=== PATIENT | male | born 1955 ===

== ENCOUNTER 2021-03-23 11:00 | Emergency (ER) | payer MEDICARE, SELFPAY ==
--- NOTE | ~2021-03-23 | XR_ITS ---
EXAMINATION: XR CHEST CLINICAL INFORMATION: Shortness of breath and cough COMPARISON: None TECHNIQUE: Frontal view of the chest was obtained. FINDINGS: No significant abnormality is noted involving the heart, lungs, mediastinum, bony thorax or soft tissues. XR/XR chest 1V IMPRESSION: No acute disease.
[2021-03-23 11:30] VITALS: BP 143/73; PULSE 82; RESP 18; TEMP 36.9; O2SAT 98; BMI 25.7
--- NOTE | 2021-03-23 14:04 | ED.URI ---
HPI - URI/Sore Throat General Chief Complaint: Upper Respiratory Symptoms Stated Complaint: nausea cough vomiting Time Seen by Provider: 03/23/21 14:03 Source: patient Mode of arrival: ambulatory Limitations: no limitations History of Present Illness MD elicited complaint: other (Fatigue, nausea ) Consistency: constant Severity: mild Able to tolerate fluids by mouth: Yes Exacerbating factors: nothing Relieving factors: nothing Context: sick contacts ( COVID + ) Associated symptoms: myalgias and nausea Treatments prior to arrival: none Review of Systems Review of Systems: Constitutional : No Weight loss, No Fever, No Chills, + Fatigue, No Malaise ENT/Mouth : No sore throat, No Rhinorrhea Eyes: No Eye Pain, No Swelling, No Redness Cardiovascular : No Chest Pain, No SOB, No Dyspnea on Exertion, No Orthopnea, No Edema, No Palpitations Respiratory : No Cough, No Sputum, No Wheezing Gastrointestinal : + Nausea, No Vomiting, No Diarrhea, No Constipation, No abdominal Pain, No Hematochezia, No Melena Genitourinary : No Dysuria, No Urinary Frequency, No Hematuria, Musculoskeletal : No joint pain, No Myalgias, No Joint Swelling Skin : No Skin Lesions, No rash Neuro : No Weakness, No Numbness, No Dizziness, No Headache Psych : No Anxiety/Panic, No Depression All other systems reviewed and are negative Yes all other systems are reviewed and are negative [facility], LAT[facility] Past Medical History Attestation statement: The following information was validated with the patient. Source: old records reviewed and nursing notes reviewed Social History Social History Advance Directives: Yes Advance Directives Information Provided: No Advance Directives on File: No Physical Exam Vital Signs: Vital Signs: Last Vital Signs Temp 98.4 F 03/23/21 11:30 Pulse 82 03/23/21 11:30 Resp 18 03/23/21 11:30 BP 143/73 H 03/23/21 11:30 Pulse Ox 98 03/23/21 11:30 BMI result Body Mass Index 25.7 VSS slightly hypertensive. Appearance: Alert.? Oriented X3.? No acute distress.? Head: Normocephalic, atraumatic, no step-offs or deformities Eyes: Pupils equal, round and reactive to light.? ENT: Pharynx normal.? Neck: Normal inspection.? Neck supple.? CVS: Normal heart rate and rhythm.? Pulses normal.? Respiratory: No respiratory distress.? Breath sounds normal.? Abdomen: Soft and nontender.? Skin: Skin warm and dry.? Normal skin color.? Normal skin turgor.? Extremities: No lower extremity edema.? No calf ttp. 5/5 strength to bilateral upper and lower extremities Back: No midline tenderness, no C-spine tenderness, full range of motion, no CVA tenderness bilaterally Neuro: Oriented X 3.? No motor deficit.? No sensory deficit. MDM - URI/Sore Throat MDM Narrative Medical decision making narrative: 1400 65-year-old male no known medical history presents to the emergency department with complaints of nausea, and fatigue, he also reports a sick contact, his is currently COVID positive. Physical examination benign. Plan at this time is to obtain a COVID swab and basic labs. Medical Records Attestation: I reviewed the patient's medical records. Lab Data Attestation: I reviewed the patient's lab results. Critical Care Time Critical Care Time Critical Care Time: No Discharge Plan Discharge Clinical Impression: Nausea, Fatigue Patient Disposition: Home, Self-Care Instructions: Fatigue (ED), Acute Nausea and Vomiting (ED) Referrals: Physician,None [Primary Care Provider] - 2 days
--- NOTE | 2021-03-23 14:26 | ED.URI ---
HPI - URI/Sore Throat General Chief Complaint: Upper Respiratory Symptoms Stated Complaint: nausea cough vomiting Time Seen by Provider: 03/23/21 14:03 Source: patient Mode of arrival: ambulatory Limitations: no limitations History of Present Illness HPI Narrative: 65-year-old male no known medical history presents to the emergency department with fatigue, nausea, and productive cough w/ clear sputum he is concerned because his is currently COVID positive. He tells me he is not vaccinated. He tells me that he has been feeling fatigued, and nauseated for the past week. He denies chest pain, shortness of breath, fevers, chills, nausea, vomiting, headache, rhinorrhea, sore throat, ear pain, dizziness, vision changes. Patient is not vaccinated against COVID-19. Patient is taking NyQuil for symptoms. MD elicited complaint: other (Fatigue) Onset (ago): week(s) (1) Consistency: constant Severity: severe Description of mucous: clear Able to tolerate fluids by mouth: Yes Exacerbating factors: nothing Relieving factors: nothing Context: sick contacts ( covid +) Associated symptoms: myalgias Treatments prior to arrival: other (Patient drinking plenty of fluids, and taking NyQuil frequently) Related Data Previous Rx's Medication Instructions Recorded ondansetron 4 mg disintegrating 4 mg PO ONCE PRN #10 tab 03/23/21 tablet Allergies Allergy/AdvReac Type Severity Reaction Status Date / Time Unable to Assess Allergy Unverified 03/23/21 14:30 Review of Systems Review of Systems: Constitutional : No Weight loss, No Fever, No Chills, + Fatigue, + Malaise ENT/Mouth : No sore throat, No Rhinorrhea Eyes: No Eye Pain, No Swelling, No Redness Cardiovascular : No Chest Pain, No SOB, No Dyspnea on Exertion, No Orthopnea, No Edema, No Palpitations Respiratory : No Cough, No Sputum, No Wheezing Gastrointestinal : No Nausea, No Vomiting, No Diarrhea, No Constipation, No abdominal Pain, No Hematochezia, No Melena Genitourinary : No Dysuria, No Urinary Frequency, No Hematuria, Musculoskeletal : No joint pain, No Myalgias, No Joint Swelling Skin : No Skin Lesions, No rash Neuro : No Weakness, No Numbness, No Dizziness, No Headache All other systems reviewed and are negative Yes all other systems are reviewed and are negative PMFSH Past Medical History Attestation statement: The following information was validated with the patient. Source: old records reviewed and nursing notes reviewed Social History Social History Advance Directives: Yes Advance Directives Information Provided: No Advance Directives on File: No Physical Exam Vital Signs: Vital Signs: Last Vital Signs Temp 99.6 F 03/23/21 15:18 Pulse 77 03/23/21 15:18 Resp 18 03/23/21 15:18 BP 136/80 03/23/21 15:18 Pulse Ox 98 03/23/21 15:18 BMI result Body Mass Index 25.7 Vital signs stable, patient noted to be slightly hypertensive. Appearance: Alert.? Oriented X3.? No acute distress.? Patient appears well. Head: Normocephalic, atraumatic, no step-offs or deformities Eyes: Pupils equal, round and reactive to light.? Extraocular movements intact ENT: Pharynx normal.? Moist mucous membranes Neck: Normal inspection.? Neck supple.? CVS: Normal heart rate and rhythm.? Pulses normal.? Respiratory: No respiratory distress.? Breath sounds normal.? Abdomen: Soft and nontender.? Skin: Skin warm and dry.? Normal skin color.? Normal skin turgor.? Extremities: No lower extremity edema. 5/5 strength to bilateral upper and lower extremities Back: No midline tenderness, no C-spine tenderness, full range of motion, no CVA tenderness bilaterally Neuro: Oriented X 3.? No motor deficit.? No sensory deficit. Course Reevaluation(s) Reevaluation #1: Chest x-ray negative. Patient's vital signs stable, saturating 98% on room air even after ambulation. Patient is safe for discharge home with PCP follow-up. Patient's symptoms likely secondary to COVID-19 infection. Patient is not vaccinated. I have advised him to return to the emergency department with new or worsening symptoms. Patient follow-up with his primary care provider. Time: 15:48 MDM - URI/Sore Throat MDM Narrative Medical decision making narrative: 0993 65-year-old male no known medical history presents to the emergency department with fatigue, malaise, productive cough of clear sputum, nausea x1 week. Patient tells me is COVID positive. He is not vaccinated. He does not smoke. He denies chest pain, shortness breath, fevers, chills, vomiting Upon physical examination patient appears well, vital signs stable, noted to be slightly hypertensive. Rest of physical examination benign Plan at this time is to obtain a chest x-ray and COVID test Medical Records Attestation: I reviewed the patient's medical records. Lab Data Attestation: I reviewed the patient's lab results. Labs: Lab Results 03/23/21 Range/Units 14:37 COVID-19 (TEJ) Positive A (Negative) COVID-19 Clin Com See Note Imaging Data Chest x-ray: Attestation: I personally reviewed and interpreted this imaging study as follows: Radiologist's impression: FINDINGS: No significant abnormality is noted involving the heart, lungs, mediastinum, bony thorax or soft tissues. XR/XR chest 1V IMPRESSION: No acute disease. ? Critical Care Time Critical Care Time Critical Care Time: No Discharge Plan Discharge Clinical Impression: Nausea, Fatigue, COVID-19 Patient Disposition: Home, Self-Care Instructions: Acute Nausea and Vomiting (ED), Fatigue (ED) Additional Instructions: Take your medications as prescribed. If you were prescribed antibiotics today, it is important that you take your medication to their entirety, do not skip any doses, do not finish them early. Today you tested positive for COVID-19. Take Ibuprofen or Tylenol as needed for fevers or body aches. Quarantine for 14 days if you are not vaccinated or for 10 days if you are vaccinated. Drink plenty of fluids. You can take ibuprofen every 6 hours, Tylenol every 4 alternating Follow-up with your primary care provider this week. Return to the emergency department with new or worsening symptoms. In case of emergency call 911 Prescriptions: New ondansetron 4 mg tablet,disintegrating 4 mg PO ONCE PRN (Reason: nausea and vomiting) Qty: 10 RF: 0 Referrals: Physician,None [Primary Care Provider] - 2 days Stand Alone Forms: Work/School Release
[2021-03-23 15:01] LABS: COVID-19 Test Positive (Negative); IDNOW Serial# 08D9AD1C
[2021-03-23 15:18] VITALS: BP 136/80; PULSE 77; RESP 18; TEMP 37.6; O2SAT 98
== END 2021-03-23 15:55 | disposition home or self-care (01) ==
PROVIDERS: Emergency Provider Emergency Medicine
DX: U07.1 COVID-19 (principal)
CPT/HCPCS: 36415; 71045; 87635; 99283; 99284

== ENCOUNTER 2022-12-15 09:45 | Outpatient (AMB) | payer MEDICARE, SELFPAY ==
--- NOTE | 2022-12-15 10:05 | A.OFFPC_ITS ---
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 Patient presents with concerns of aging and recovering from a hernia surgery and feels like he may not be recovering as well as planned. Patient has colonoscopy planned for 03/2023. 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 Sun damaged skin, Neoplasm L forearm L Great Toenail Trauma PMHx: L inguinal hernia, Hiatal Hernia, sun damaged skin SurgHx: L ingunal hernia, Hiatal Hernia FHx: Mom: Dementia. Dad: Esophageal Cancer SocHx: Nonsmoker, EtOH minimal/none. [facility] Medical History (Updated 12/15/22 @ 11:01 by Joey Barriga) Concern about skin disease without diagnosis Chronic GERD Deviated nasal septum Elbow fracture Hiatal hernia Inguinal hernia Surgical History (Updated 12/15/22 @ 10:33 by Daxa Buckley) History of hernia repair H/O inguinal hernia repair Family History (Updated 12/15/22 @ 10:36 by Daxa Buckley) Mother High cholesterol Father Esophageal cancer Maternal Grandmother Breast cancer Paternal Grandfather Thyroid disorder Maternal Grandfather Alcoholism Social History Housing: House Alcohol intake: never Patient Tobacco Use Status: Never used Tobacco e-Cigarette/Vaping Use: Former Use Substance Use Type: Marijuana service: Yes ([employer]) Current occupational status: employed 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 1. Little interest or pleasure in doing things: nearly every day 2. Feeling down, depressed, or hopeless: nearly every day 3. Trouble falling or staying asleep, or sleeping too much: nearly every day 4. Feeling tired or having little energy: nearly every day 5. Poor appetite or overeating: nearly every day 6. Feeling bad about yourself - or that you are a failure or have let yourself or your family down: not at all 7. Trouble concentrating on things, such as reading the newspaper or watching television: not at all 8. Moving or speaking so slowly that other people could have noticed. Or the opposite - being so fidgety or restless that you have been moving around a lot more than usual: not at all 9. Thoughts that you would be better off or of hurting yourself in some way: not at all Total score: 15 Depression Screening Interpretation: Positive 24685 - PHQ-9 Billing: Yes Source: Developed by Drs. Shailesh Krishna, Diana Boogie, Levi Dobson and colleagues, with an educational matthieu from [employer]. Thrive Questionnaire Date Thrive assessed: 12/15/22 I am a: Patient What is your living situation today?: I have a steady place to live Within the past 12 months, did the food you bought not last and you didn't have the money to get more?: Never true Within the past 12 months, did you worry whether your food would run out before you got money to buy more?: Never true Do you have trouble paying for medicines?: No Do you have trouble getting transportation to medical appointments?: No Do you have trouble paying your heating and electricity bill?: No Do you have trouble taking care of your child, family member or friend?: No Do you have trouble with day-to-day activities such as bathing, preparing meals, shopping, managing finances, etc.?: No Are you currently unemployed and looking for a job?: No Are you interested in more education?: No Please select the resources that you would like help with: None Currently or been in a relationship where the following occur: no concerns reported AUDIT C Alcohol Use Questionnaire (AUDIT-C) 1. How often do you have a drink containing alcohol?: Never 3. How often do you have six or more drinks on one occasion?: Never Total Score: 0 KEYANA-7 AMB Questionnaire KEYANA-7 Date KEYANA - 7 assessed: 12/15/22 Feeling nervous, anxious, or on edge: 0 = Not at all Not being able to stop or control worryin = Not at all Worrying too much about different things: 2 = More than half the days Trouble relaxin = More than half the days Being so restless that it is hard to sit still: 0 = Not at all Becoming easily annoyed or irritable: 1 = Several days Feeling afraid as if something awful might happen: 0 = Not at all Total KEYANA-7 score (0-4 normal; 5-9 mild; 10-14 moderate; 15-21 severe): 5 Source: Developed by Drs. Shailesh Krishna, Diana Boogie, Levi Dobson and colleagues, with an educational matthieu from [employer]. KEYANA-7 Assessment Billing KEYANA-7 Assessment Tool: KEYANA-7 Assessment 36293 Review of Systems Const Denies chills, Denies fatigue, Denies fever(s), Denies headache(s) and Denies weakness ENT Denies dizziness and Denies headache(s) Card Denies chest pain, Denies lightheadedness, Denies dyspnea and Denies other (Palpitations) Resp Denies cough, Denies dyspnea, Denies wheezing and Denies other ( shortness of breath) GI Reports abdominal pain Musc Denies numbness and Denies tingling Neuro Denies dizziness, Denies headache(s), Denies numbness, Denies tingling, Denies paresthesias and Denies weakness Psych Denies anxiety and Denies depression Endo Denies fatigue Aller/Immun Denies wheezing Physical exam (Primary Care) Vital Signs: Last Vital Signs Temp 98.2 F 12/15/22 10:06 Pulse 84 12/15/22 10:06 Resp 13 12/15/22 10:06 BP 124/60 12/15/22 10:06 Pulse Ox 96 09/08/23 10:06 Oxygen Delivery Method Room Air 12/15/22 10:06 BMI result Body Mass Index 27.2 Tobacco/Smoking Status: Tobacco use Status Tobacco use date assessed 12/15/22 12/15/22 10:16 Patient Tobacco Use Status Never used Tobacco 12/15/22 10:16 e-Cigarette/Vaping Use Former Use 12/15/22 10:16 PHQ-9: PHQ-9 Score PHQ-9: Total score 15 12/15/22 10:34 Depression Screening Interpretation: Positive Thrive Assessment: Date of Thrive Assessment Date Thrive assessed 12/15/22 12/15/22 10:22 Currently or been in a relationship where the following occur: no concerns reported Const General: no acute distress and well developed Nutritional Appearance: well nourished Orientation/consciousness: patient oriented x3 HENMT Head: Yes normocephalic and Yes atraumatic Eyes General: appearance normal, both eyes and all related structures Pupils: Equal, round and reactive pupils present EOM: EOMs intact bilaterally Resp Effort & Inspection: normal respiratory effort Auscultation: clear to auscultation bilaterally Cardio Rate: regular rate Rhythm: regular rhythm Heart sounds: S1 normal heart sound present, S2 normal heart sound present, no gallops, no murmurs and no rubs Neuro General: patient oriented x3 and gait normal Cranial nerves: Yes Equal, round and reactive pupils present Psych Affect: normal affect Assessment and Plan Assessment & Plan (1) Left inguinal hernia: Code(s): K40.90 - Unilateral inguinal hernia, without obstruction or gangrene, not specified as recurrent Plan: Left lower quadrant abdominal pain and left inguinal pain. He is at least 4 months S/P inguinal hernia repair and still having pain and GI symptoms such as diarrhea/constipation. Hydrate well Can use a soluble Fiber tablet Has appointment with GI will follow-up (2) Abdominal pain: Code(s): R10.9 - Unspecified abdominal pain Plan: As above (3) Sun-damaged skin: Code(s): L57.8 - Other skin changes due to chronic exposure to nonionizing radiation Plan: Neoplasm on left forearm which appears consistent with actinic keratosis and sun damaged skin Referred to Dermatology (4) Neoplasm of uncertain behavior of skin: Code(s): D48.5 - Neoplasm of uncertain behavior of skin Plan: As above (5) Laboratory exam ordered as part of routine general medical examination: Code(s): Z00.00 - Encounter for general adult medical examination without abnormal findings Plan: Check labs Orders: Orders Lipid Panel Today Z00.00 - Encounter for general adult medical examination without abnormal findings Prostate Specific Antigen Scr Today Z12.5 - Encounter for screening for malignant neoplasm of prostate TSH reflex Free T4 Today Z00.00 - Encounter for general adult medical examination without abnormal findings US pelvic complete Today K40.90 - Unilateral inguinal hernia, without obstruction or gangrene, not specified as recurrent, R10.9 - Unspecified abdominal pain Comprehensive [place]. Panel Fast Today Z00.00 - Encounter for general adult medical examination without abnormal findings Complete Blood Count Auto Diff Today Z00.00 - Encounter for general adult medical examination without abnormal findings Microalbumin, Random (w Creat) Today I10 - Essential (primary) hypertension UA and rflx microscopic Today Z00.00 - Encounter for general adult medical examination without abnormal findings Referrals Dermatology Referral D48.5 - Neoplasm of uncertain behavior of skin, L57.8 - Other skin changes due to chronic exposure to nonionizing radiation Medications: New calcium polycarbophil (FiberCon) 625 mg PO DAILY 30 tabs 2RF 30 days Coding Level of Care Code New Pt Level 3 (04388) Diagnoses Left inguinal hernia K40.90 Abdominal pain R10.9 Sun-damaged skin L57.8 Neoplasm of uncertain behavior of skin D48.5 Laboratory exam ordered as part of routine general medical examination Z00.00 Additional Codes KEYANA-7 Assessment Billing - KEYANA-7 Assessment Tool: KEYANA-7 Assessment 80229 ([id number])
[2022-12-15 10:06] VITALS: BP 124/60; PULSE 84; RESP 13; TEMP 36.8; O2SAT 96; BMI 27.2
== END 2022-12-15 11:02 | disposition home or self-care (01) ==
PROVIDERS: PCP Family Medicine; Visit Provider Family Medicine
DX: K40.90 Unilateral inguinal hernia, without obstruction or gangrene, not specified as recurrent (principal); R10.9 Unspecified abdominal pain; L57.8 Other skin changes due to chronic exposure to nonionizing radiation; D48.5 Neoplasm of uncertain behavior of skin; Z00.00 Encounter for general adult medical examination without abnormal findings
CPT/HCPCS: 99203

== ENCOUNTER 2022-12-29 12:51 | Outpatient (REF) | payer MEDICARE, SELFPAY ==
--- NOTE | ~2022-12-29 | US_ITS ---
EXAMINATION: US PELVIS, LIMITED/FOLLOW UP CLINICAL INFORMATION: Left lower quadrant and left inguinal pain with history of inguinal hernia repair 4 months ago. COMPARISON: None available. TECHNIQUE: The patient directed the voucher examiner to the area of clinical concern. Targeted ultrasound was performed. FINDINGS: Hernia mesh is seen. No discrete recurrent hernia is seen. No fluid collection. Incidental note is made of cysts versus spermatocele in the left epididymis. Small left hydrocele. US/US pelvic limited IMPRESSION: Left inguinal hernia repair with mesh. No visible recurrent hernia. Incidental note made of cysts versus spermatocele in the left epididymis and small left hydrocele.
== END 2022-12-29 12:52 | disposition home or self-care (01) ==
LOC: HO.HMGCX 12:51
PROVIDERS: PCP Family Medicine; Visit Provider Family Medicine
DX: R10.9 Unspecified abdominal pain (principal); K40.90 Unilateral inguinal hernia, without obstruction or gangrene, not specified as recurrent
CPT/HCPCS: 76857

== ENCOUNTER 2023-02-13 10:23 | Outpatient (REF) | payer MEDICARE, SELFPAY ==
[2023-02-13 14:27] LABS: MANUAL DIFF FLAG NO
[2023-02-13 14:34] LABS: Basophils Absolute Auto 0.1 X10*3/uL (0.0-0.2); Eosinophils Absolute Auto 0.2 X10*3/uL (0.0-0.4); Eosinophils Percent Auto 3.7 % (0-4); Hematocrit 43.2 % (42.0-52.0); Hemoglobin 14.8 g/dl (14.0-18.0); Imm Gran Abs Auto 0.01 X10*3/uL (0.00-0.03); Imm Gran Pct Auto 0.2 % (0.0-0.4); Lymphocytes Absolute Auto 1.5 X10*3/uL (1.2-4.9); Lymphocytes Percent Auto 25.9 % (20-40); Mean Corpuscular HGB Conc 34.3 g/dl (31.0-36.0); Mean Corpuscular Hemoglobin 32.5 pg (27.0-33.0); Mean Corpuscular Volume 94.9 fL (80.0-98.0); Mean Platelet Volume 10.1 fL (9.4-12.4); Monocytes Absolute Auto 0.4 X10*3/uL (0.1-1.2); Monocytes Percent Auto 6.3 % (2-11); Neutrophils Absolute Auto 3.7 x10*3/uL (2.0-8.3); Neutrophils Percent Auto 62.9 % (45-73); Platelet Count 178 X10*3/uL (160-400); Red Blood Count 4.55 X10*6/uL (4.60-5.80); Red Cell Distribution Width 13.3 % (11.0-16.0); White Blood Count 5.9 X10*3/uL (4.8-10.8)
[2023-02-13 14:55] LABS: Alanine Aminotransferase 19 U/L (0-40); Albumin Level 4.2 g/dL (3.5-5.0); Alkaline Phosphatase 55 U/L (39-117); Anion Gap 9 (12-20); Aspartate Amino Transferase 17 U/L (5-37); Bilirubin Total 0.7 mg/dL (0.0-1.0); Blood Urea Nitrogen 16 mg/dL (9-16); Calcium 9.3 mg/dL (8.4-10.2); Carbon Dioxide 30 mmol/L (22-29); Chloride 108 mmol/L (96-108); Cholesterol 195 mg/dL (<200); Estimated Glomerular Filt Rate > 60; Glucose Fasting 97 mg/dL (60-99); HDL Cholesterol 50 mg/dL (>40); LDL Cholesterol Calculated 130 mg/dL (<100); Sodium 143 mmol/L (135-145); Triglycerides 76 mg/dL (<150)
[2023-02-13 15:06] LABS: Prostate Specific Antigen Scr 1.72 ng/mL (<0.05-4.0)
[2023-02-13 15:13] LABS: TSH reflex Free T4 1.47 uIU/mL (0.32-4.0)
== END 2023-02-13 10:24 | disposition home or self-care (01) ==
LOC: HO.WFDLDS 10:23
PROVIDERS: Visit Provider Family Medicine
DX: Z00.00 Encounter for general adult medical examination without abnormal findings (principal); I10 Essential (primary) hypertension; Z20.2 Contact with and (suspected) exposure to infections with a predominantly sexual mode of transmission; Z12.5 Encounter for screening for malignant neoplasm of prostate
CPT/HCPCS: 36415; 80053; 80061; 84153; 84443; 85025

== ENCOUNTER 2023-02-14 10:27 | Outpatient (REF) | payer MEDICARE, SELFPAY ==
[2023-02-14 14:27] LABS: Appearance Urine Clear; Color Urine Yellow; Glucose Urine UA Negative (Negative); Leukocyte Esterase Urine Negative (Negative); Nitrite Urine Negative (Negative); PH 5.5 (5.0-9.0); Specific Gravity - Urine 1.025 (1.005-1.025); Urine Blood Negative (Negative); Urine Ketones Negative (Negative); Urine Protein Negative (Neg-Trace)
[2023-02-14 15:44] LABS: Creatinine Urine 169.95 mg/dL; Microalbum/Creatinine Ratio Ur 4.1 ug/mg cr (<30)
== END 2023-02-14 10:28 | disposition home or self-care (01) ==
LOC: HO.WFDLNP 10:27
PROVIDERS: Visit Provider Family Medicine
DX: Z00.00 Encounter for general adult medical examination without abnormal findings (principal); I10 Essential (primary) hypertension
CPT/HCPCS: 81003; 82043; 82570

== ENCOUNTER 2023-02-20 11:58 | Outpatient (AMB) | payer MEDICARE, SELFPAY ==
[2023-02-20 12:03] VITALS: BP 122/62; PULSE 58; O2SAT 97; BMI 27.1
--- NOTE | 2023-02-20 12:03 | A.OFFPC_ITS ---
Vital Signs 02/20/23 12:03 Height 5 ft 9.5 in Weight 186 lb BMI 27.1 BP 122/62 Blood Pressure Location Lt brachial Position Sitting Pulse 58 Pulse Source Pulse Oximeter Pulse Oximetry (%) 97 Oxygen Delivery Method Room Air Intake Visit Reasons: Extended exam , f/u labs,health maintenance Intake Note: Patient is here for extended exam with follow up on labs on health maintenance. Patient states he is still having trouble with digestive system since hernia surgery. Allergies No Known Allergies Allergy (Verified 02/20/23 12:05) Tobacco use date assessed: 02/20/23 Fall risk assessment: No Falls in past year Last assessed Fall Risk: 02/20/23 HPI Extended exam , f/u labs,health maintenance HPI Details 67 y/o male presents for an extended exa m with f/u labs and health maintenance. Labs were drawn 02/13/23. Reviewed labs with pt. Triglycerides 76. TC 195. LDL 130. HDL 50. PSA 1.72. Pelvis ultrasound 12/29/22 shows L inguinal hernia repair with mesh. No visible recurrent hernia. Also showed incident cyst vs spermatocele in L epididymis and small L hydrocele. [facility] Medical History Concern about skin disease without diagnosis Chronic GERD Deviated nasal septum Elbow fracture Hiatal hernia Inguinal hernia Surgical History History of hernia repair H/O inguinal hernia repair Family History Mother High cholesterol Father Esophageal cancer Maternal Grandmother Breast cancer Paternal Grandfather Thyroid disorder Maternal Grandfather Alcoholism Social History Housing: House Alcohol intake: never Patient Tobacco Use Status: Never used Tobacco e-Cigarette/Vaping Use: Former Use Substance Use Type: Marijuana service: Yes ([employer]yard) Current occupational status: employed 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 Shailesh Krishna, Diana Boogie, Levi Dobson and colleagues, with an educational matthieu from [employer]. Review of Systems Const Denies chills, Reports fatigue, Denies fever(s), Denies headache(s) and Denies weakness Eyes Denies change in vision ENT Denies dizziness, Denies headache(s), Denies hearing loss, Denies nasal congestion, Denies sinus pain, Denies sinus pressure and Denies sore throat Card Denies chest pain, Denies lightheadedness, Denies dyspnea and Denies other (palpitations) Resp Denies cough, Denies dyspnea and Denies wheezing GI Denies abdominal pain, Denies melena, Denies hematochezia, Denies change in paulina wel habits, Denies dyspepsia and Denies nausea Denies hematuria and Denies dysuria Musc Denies abnormal gait, Denies myalgias, Denies arthralgias, Denies numbness and Denies tingling Skin/Breast Denies rash, Denies unusual bruising and Denies wounds Neuro Denies abnormal gait, Denies dizziness, Denies headache(s), Denies memory loss, Denies numbness, Denies Sensory deficit (Neuro), Denies tingling and Denies weakness Psych Denies anxiety, Denies depression and Denies memory loss Endo Denies cold intolerance, Reports fatigue, Denies heat intolerance, Denies polydipsia and Denies polyuria Max/Lymph Denies easy bleeding and Denies easy bruising Aller/Immun Denies wheezing Physical exam (Primary Care) Vital Signs: Last Vital Signs Pulse 58 02/20/23 12:03 BP 122/62 02/20/23 12:03 Pulse Ox 97 02/20/23 12:03 Oxygen Delivery Method Room Air 02/20/23 12:03 BMI result Body Mass Index 27.1 Tobacco/Smoking Status: Tobacco use Status Tobacco use date assessed 02/20/23 02/20/23 12:06 Patient Tobacco Use Status Never used Tobacco 02/20/23 12:04 e-Cigarette/Vaping Use Former Use 02/20/23 12:04 Thrive Assessment: Date of Thrive Assessment Date Thrive assessed 12/15/22 02/20/23 12:04 Const General: no acute distress, well developed, alert and awake Nutritional Appearance: well nourished Orientation/consciousness: patient oriented x3 [facility] Head: Yes normocephalic and Yes atraumatic Ears: hearing grossly normal bilaterally and TM's normal bilaterally General nose exam: Normal external nose present and Normal nares present Mouth: Normal oral and palatal mucosa present and moist mucous membranes Teeth and gingiva: dentition normal Throat: Yes posterior oropharynx normal Eyes General: appearance normal, both eyes and all related structures Pupils: Equal, round and reactive pupils present and Pupil accommodation reflex normal EOM: EOMs intact bilaterally Neck Neck: Yes normal visual inspection, Yes no lymphadenopathy and Yes trachea midline Thyroid: Thyroid normal Carotids: no bruits Lymphatic: no lymphadenopathy noted Chest Chest palpation & inspection: normal inspection of the chest Resp Effort & Inspection: normal respiratory effort Auscultation: clear to auscultation bilaterally Cardio Rate: regular rate Rhythm: regular rhythm Heart sounds: S1 normal heart sound present, S2 normal heart sound present, no gallops, Murmur heart sound present (4/6?holosystolic?murmur?over?aorta?and?apex) and no rubs Bruits: no abdominal aortic bruits and no carotid bruits GI Palpation (GI): No Abdominal aortic bruit present, Soft to palpation, nontender, No hepatosplenomegaly present and No Rebound tenderness present Auscultation: normal bowel sounds General: Yes no CVA tenderness Back/Spine/Pelvis Back: no CVA tenderness Cervical Spine: cervical ROM normal and No Cervical spine tenderness Thoracic/Lumbar Spine: thoraco-lumbar ROM normal, No pain with thoraco-lumbar ROM, No thoracic spinal tenderness and No lumbar spinal tenderness Skin Lesions: no lesions Rashes: no rashes Trauma: no lacerations or abrasions Wounds: no wounds Nails: normal Neuro General: patient oriented x3 Cranial nerves: Yes Equal, round and reactive pupils present Cognition (Neuro): normal cognition Gait exam (Neuro): Normal gait present Motor exam (neuro): 5/5 motor strength present throughout Sensory Exam: No Sensory deficit (Neuro) Deep tendon reflexes (DTR's): Right patellar reflex intensity grade: 2+ and Left patellar reflex intensity grade: 2+ Extrem General: Yes normal to inspection and No edema Psych Appearance: grossly normal Affect: normal affect Attitude: cooperative Thought process: Normal thought process present Assessment and Plan Assessment & Plan (1) Cardiac murmur: Code(s): R01.1 - Cardiac murmur, unspecified Plan: 4/6?holosystolic?murmur?over?aorta?and?apex Patient?aware?of?murmur?but?no?recent?evaluation Echocardiogram?ordered (2) Left inguinal pain: Code(s): R10.32 - Left lower quadrant pain Plan: No?new?hernia Spermatocele?and?varicocele?seen?on?ultrasound Discussed?using?cooling?supportive?undergarments Referred?to?Urology (3) Hydrocele: Code(s): N43.3 - Hydrocele, unspecified Plan: As?above (4) Screening for colon cancer: Code(s): Z12.11 - Encounter for screening for malignant neoplasm of colon Plan: Follow-up[facility]with[facility]GI[facility]at[facility] Has?upcoming?colonoscopy (5) Screening for prostate cancer: Code(s): Z12.5 - Encounter for screening for malignant neoplasm of prostate Plan: PSA?was?within?normal?limit (6) Fatigue: Code(s): R53.83 - Other fatigue Plan: Mild?fatigue,?likely?secondary?to?deconditioning. However,?patient?does?have?significant?murmur - checking?echocardiogram (7) Adult general medical exam: Code(s): Z00.00 - Encounter for general adult medical examination without abnormal findings Plan: 67-year-old?male?presents?for?an?extended?exam Encouraged?healthy?diet?active?lifestyle?and?plenty?of?exercise Orders: Orders CA echo transthoracic complete Today R01.1 - Cardiac murmur, unspecified Referrals Urology Referral R10.32 - Left lower quadrant pain Coding Level of Care Code Est Pt Level 4 (52139) Diagnoses Cardiac murmur R01.1 Left inguinal pain R10.32 Hydrocele N43.3 Screening for colon cancer Z12.11 Screening for prostate cancer Z12.5 Fatigue R53.83 Adult general medical exam Z00.00
== END 2023-02-20 12:55 | disposition home or self-care (01) ==
PROVIDERS: PCP Family Medicine; Visit Provider Family Medicine
DX: R01.1 Cardiac murmur, unspecified (principal); R10.32 Left lower quadrant pain; N43.3 Hydrocele, unspecified; Z12.11 Encounter for screening for malignant neoplasm of colon; Z12.5 Encounter for screening for malignant neoplasm of prostate; R53.83 Other fatigue; Z00.00 Encounter for general adult medical examination without abnormal findings
CPT/HCPCS: 99214

== ENCOUNTER → 2023-03-27 12:47 | Outpatient (REF) | payer MEDICARE, SELFPAY ==
--- NOTE | 2023-03-27 12:53 | CA_ITS ---
Transthoracic Echocardiogram Patient (Last, First, Middle): Tee Lao, Gender: Male Date of : 1955 Age: 67 Procedure Date: 03/27/2023 Procedure Type: Transthoracic Echocardiogram Location: OP Height: 180.34 cm Weight: 82.56 kg BSA: 2.03 m2 Heart Rate: bpm BP: 118 / 66 mmHg Courtroom Clerk: TO Referring MD: Kurt Richmond MD Director [employer]: Kenny Tinoco MD Symptoms: R01.1 - Cardiac murmur, unspecified Study Quality: Fair ECG Rhythm: Sinus Conclusions: - 1. Normal LV ejection fraction of 60 65% 2. Mildly dilated left atrium 3. Normal cardiac valvular Dopplers 4. Upper limits of normal ascending aortic size 5. No gross pericardial effusion Findings Left Ventricle Normal left ventricular size, thickness, and systolic function. The visually estimated ejection fraction is between 60-65%. Spectral Doppler is indicative of a normal filling pattern. Peak GLS is -26.4%, which is excellent. Right Ventricle Normal right ventricular cavity size and systolic function. Atria The left atrium is mildly dilated. Interatrial shunt cannot be excluded. The right atrium is normal in size. Aortic Valve The aortic valve structure and function is likely normal. There is no aortic valve stenosis. There is no aortic valve regurgitation. Mitral Valve Normal mitral valve structure and function. There is trace mitral valve regurgitation. There is no mitral valve stenosis. Pulmonic Valve The pulmonic valve is likely normal. Tricuspid Valve Likely normal tricuspid valve structure and function. Tricuspid regurgitation envelope is inadequate for calculation of right ventricular systolic pressure. Normal right atrial pressure. Great Vessels The pulmonary artery was not well visualized. Venous The inferior vena cava is normal in size and collapses greater than 50% with inspiration. Pericardium/Pleural There is no evidence of pericardial effusion. Prior Study Comparison No prior study available for comparison. Measurements 2D Linear Measurements IVSd: 1.07 0.6-0.9/0.6-1.0 cm LVIDd: 4.97 3.9-5.3/4.2-5.9 cm LVIDd Index: 2.45 2.4-3.2/2.2-3.1 cm/m2 LVIDs: 3.71 2.0-3.6 cm LVPWd: 0.84 0.7-1.1 cm LA Diam: 3.40 2.7-3.8/3.0-4.0 cm LAIDs Index: 1.67 1.5-2.3 cm/m2 LV Mass: 210.57 67-162/88-224 g LV Mass Index: 103.73 43-95/49-115 g/m2 LVOT Diam: 2.30 3.0+(-)1.3 cm 2D Systolic Function EF 4C: 62.60 >55% EF 2C: 62.20 >55% EF BiP: 62.50 >55% Mitral Valve MV Pk E: 0.70 MV PK A: 0.47 MV Decel Time: 283.00 E/A: 1.50 E'Lateral: 9.57 E'Medial: 7.18 E/E' Med: 9.70 E/E' Lat: 7.30 PHT: 83.00 MVA PHT: 2.65 Decel Crenshaw: 2.47 Aortic Valve AoV Pk Rick: 1.46 AoV Mn Rick: 0.91 AoV VTI: 0.33 AoV Pk Grad: 9.00 Aov Mn Grad: 4.00 CHRIS Cont.VTI: 2.72 LVOT LVOT Pk Rick: 0.96 LVOT Mn Rick: 0.63 LVOT VTI: 0.22 LVOT Pk Grad: 4.00 LVOT Mn Grad: 2.00 LVOT Diam: 2.30 LVOT Area: 4.15 Diastolic Function MV Pk E: 0.70 MV Pk A: 0.47 E/A: 1.50 E'Medial: 7.18 E/E' Med: 9.70 E' Laterial: 9.57 E/E' Lat: 7.30 Right Ventricle TAPSE (mm): 31.60 TVS' Rick: 11.90 Tricuspid Valve RA Press: 3.00 Great Vessels Aorta Sinus of Valsalva: 3.38 2.0-3.5 cm Ao Asc: 3.60 2.1-3.4 cm Updated in Other Vendor System with Status of Final Kenny Tinoco MD electronically signed on 03/28/2023 5:55:54 PM with status of Final
== END ==
LOC: HO.CARD 12:47
PROVIDERS: PCP Family Medicine; Visit Provider Family Medicine
DX: R01.1 Cardiac murmur, unspecified (principal)
CPT/HCPCS: 93306; 93356

== ENCOUNTER → 2023-03-27 12:53 | Outpatient (BNV) | payer MEDICARE, SELFPAY | PROVIDERS: PCP Family Medicine; Visit Provider Internal Medicine Cardiovascular Disease | DX: I36.1 Nonrheumatic tricuspid (valve) insufficiency (principal) | CPT/HCPCS: 93306 ==

== ENCOUNTER 2023-05-01 14:27 | Outpatient (AMB) | payer MEDICARE, SELFPAY ==
--- NOTE | 2023-05-01 14:29 | A.OFFPC_ITS ---
Vital Signs 05/01/23 14:30 Height 5 ft 9.5 in Weight 185 lb BMI 26.9 BP 118/72 Blood Pressure Location Lt brachial Position Sitting Pulse 57 Pulse Source Pulse Oximeter Pulse Oximetry (%) 97 Oxygen Delivery Method Room Air Intake Visit Reasons: f/u murmur and chronic conditions Intake Note: Patient is here to follow up on murmur and chronic conditions. Allergies No Known Allergies Allergy (Verified 02/20/23 12:05) Tobacco use date assessed: 05/01/23 Fall risk assessment: No Falls in past year Last assessed Fall Risk: 05/01/23 HPI f/u murmur and chronic conditions HPI Details 68 y/o male presents to f/u cardiac murm ur. Known cardiac murmur however pt noted some fatigue with execise. Transthoracic echocardiogram 03/27/23. Showed normal LV ejection fraction of 60 65%, mildly dilated L atrium, normal cardiac valvular dopplers, upper limits of normal ascending aorta size, and no gross pericardial effusion. Pt notes he has not been evaluated for sleep apnea yet. [facility] Medical History Concern about skin disease without diagnosis Chronic GERD Deviated nasal septum Elbow fracture Hiatal hernia Inguinal hernia Surgical History History of hernia repair H/O inguinal hernia repair Family History Mother High cholesterol Father Esophageal cancer Maternal Grandmother Breast cancer Paternal Grandfather Thyroid disorder Maternal Grandfather Alcoholism Social History Housing: House Alcohol intake: never Patient Tobacco Use Status: Never used Tobacco e-Cigarette/Vaping Use: Former Use Substance Use Type: Marijuana service: Yes ([employer]) Current occupational status: employed 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 1. Little interest or pleasure in doing things: not at all 2. Feeling down, depressed, or hopeless: not at all 3. Trouble falling or staying asleep, or sleeping too much: not at all 4. Feeling tired or having little energy: not at all 5. Poor appetite or overeating: not at all 6. Feeling bad about yourself - or that you are a failure or have let yourself or your family down: not at all 7. Trouble concentrating on things, such as reading the newspaper or watching television: not at all 8. Moving or speaking so slowly that other people could have noticed. Or the opposite - being so fidgety or restless that you have been moving around a lot more than usual: not at all 9. Thoughts that you would be better off or of hurting yourself in some way: not at all Total score: 0 Source: Developed by Drs. Shailesh Krishna, Diana Boogie, Levi Dobson and colleagues, with an educational matthieu from [employer]. Thrive Questionnaire Date Thrive assessed: 12/15/22 I am a: Patient What is your living situation today?: I have a steady place to live Within the past 12 months, did the food you bought not last and you didn't have the money to get more?: Never true Within the past 12 months, did you worry whether your food would run out before you got money to buy more?: Never true Do you have trouble paying for medicines?: No Do you have trouble getting transportation to medical appointments?: No Do you have trouble paying your heating and electricity bill?: No Do you have trouble taking care of your child, family member or friend?: No Do you have trouble with day-to-day activities such as bathing, preparing meals, shopping, managing finances, etc.?: No Are you currently unemployed and looking for a job?: No Are you interested in more education?: No THRIVE Score: 0 AUDIT C Alcohol Use Questionnaire (AUDIT-C) 1. How often do you have a drink containing alcohol?: Never 3. How often do you have six or more drinks on one occasion?: Never Total Score: 0 KEYANA-7 AMB Questionnaire KEYANA-7 Date KEYANA - 7 assessed: 05/01/23 Feeling nervous, anxious, or on edge: 0 = Not at all Not being able to stop or control worryin = Not at all Worrying too much about different things: 0 = Not at all Trouble relaxin = Not at all Being so restless that it is hard to sit still: 0 = Not at all Becoming easily annoyed or irritable: 0 = Not at all Feeling afraid as if something awful might happen: 0 = Not at all Total KEYANA-7 score (0-4 normal; 5-9 mild; 10-14 moderate; 15-21 severe): 0 Source: Developed by Drs. Shailesh Krishna, Diana Boogie, Levi Dobson and colleagues, with an educational matthieu from [employer]. Review of Systems Const Denies chills, Reports fatigue, Denies fever(s), Denies headache(s) and Denies weakness ENT Denies dizziness and Denies headache(s) Card Denies chest pain, Denies lightheadedness, Denies dyspnea and Denies other (Palpitations) Resp Denies cough, Denies dyspnea, Denies wheezing and Denies other ( shortness of breath) Musc Denies numbness and Denies tingling Neuro Denies dizziness, Denies headache(s), Denies numbness, Denies tingling, Denies paresthesias and Denies weakness Psych Denies anxiety and Denies depression Endo Reports fatigue Aller/Immun Denies wheezing Physical exam (Primary Care) Vital Signs: Last Vital Signs Pulse 57 05/01/23 14:30 BP 118/72 05/01/23 14:30 Pulse Ox 97 05/01/23 14:30 Oxygen Delivery Method Room Air 05/01/23 14:30 BMI result Body Mass Index 26.9 Tobacco/Smoking Status: Tobacco use Status Tobacco use date assessed 05/01/23 05/01/23 14:42 Patient Tobacco Use Status Never used Tobacco 05/01/23 14:32 e-Cigarette/Vaping Use Former Use 05/01/23 14:32 PHQ-9: PHQ-9 Score PHQ-9: Total score 0 05/01/23 14:42 Thrive Assessment: Date of Thrive Assessment Date Thrive assessed 12/15/22 05/01/23 14:32 Const General: no acute distress and well developed Nutritional Appearance: well nourished Orientation/consciousness: patient oriented x3 [facility] Head: Yes normocephalic and Yes atraumatic Eyes General: appearance normal, both eyes and all related structures Pupils: Equal, round and reactive pupils present EOM: EOMs intact bilaterally Resp Effort & Inspection: normal respiratory effort Auscultation: clear to auscultation bilaterally Cardio Rate: regular rate Rhythm: regular rhythm Heart sounds: Murmur heart sound present Neuro General: patient oriented x3 and gait normal Cranial nerves: Yes Equal, round and reactive pupils present Psych Affect: normal affect Assessment and Plan Assessment & Plan (1) Cardiac murmur: Code(s): R01.1 - Cardiac murmur, unspecified Plan: Stable,?benign?murmur (2) Fatigue: Code(s): R53.83 - Other fatigue Plan: Patient?still?has?some?fatigue?and?notes?that?he?gets?poo r?sleep.??Notes?some?gasping/apneic?episodes?while?sleeping.??Also?daytime?sleep iness. Referred?to?Sleep?Medicine (3) Left inguinal pain: Code(s): R10.32 - Left lower quadrant pain Plan: S/p?hernia?repair Probable?adhesion Advised?he?follow-up?with?his?surgeon (4) Hypersomnia: Code(s): G47.10 - Hypersomnia, unspecified Plan: As?above,?referred?to?Sleep?Medicine Orders: Referrals Sleep Medicine Referral G47.10 - Hypersomnia, unspecified, R53.83 - Other fatigue Coding Level of Care Code Est Pt Level 3 (10863) Diagnoses Cardiac murmur R01.1 Fatigue R53.83 Left inguinal pain R10.32 Hypersomnia G47.10
[2023-05-01 14:30] VITALS: BP 118/72; PULSE 57; O2SAT 97; BMI 26.9
== END 2023-05-01 14:58 | disposition home or self-care (01) ==
PROVIDERS: PCP Family Medicine; Visit Provider Family Medicine
DX: R01.1 Cardiac murmur, unspecified (principal); R53.83 Other fatigue; R10.32 Left lower quadrant pain; G47.10 Hypersomnia, unspecified
CPT/HCPCS: 99213

== ENCOUNTER 2023-05-18 10:59 | Outpatient (AMB) | payer MEDICARE, SELFPAY ==
--- NOTE | 2023-05-18 11:09 | MHC.OFFWIV ---
Intake Vital Signs 05/18/23 11:11 Height 5 ft 9.5 in Weight 181 lb BMI 26.3 BP 140/70 H Blood Pressure Location Lt brachial Position Sitting Pulse 77 Pulse Source Pulse Oximeter Pulse Oximetry (%) 96 Oxygen Delivery Method Room Air Intake Visit Reasons: chills, congestion Intake Note: Patient is here today for chills, congestion, fatigue, no appetite, sweats, dizziness, coughing, palpatation, no fever, no sore throats, no chest pain. Symptoms started on 05/14/23. OTC with some relief. No covid test. Patient Tobacco Use Status: Never used Tobacco Traffic Controller Cable Required: No Software Validation Engineer: Present Accompanied by: Spouse Allergies No Known Allergies Allergy (Verified 05/18/23 11:44) Medication List - Last Reconciled 05/18/23 by PIYUSH Carranza-MICHAEL calcium polycarbophil (FiberCon) 625 mg PO DAILY 30 days Do you need a note to return to daycare/school/sports/work: No HPI HPI Comments History of Present Illness Details here today w/ flu like sx started sunday head, nasal congestion, drainage from eyes in the AM, poor appetite, fatigue, chills, sweats, intermittent racing heart, using Nyquil Not UTD on vaccines [facility] Medical History Concern about skin disease without diagnosis Chronic GERD Deviated nasal septum Elbow fracture Hiatal hernia Inguinal hernia Surgical History History of hernia repair H/O inguinal hernia repair Family History Mother High cholesterol Father Esophageal cancer Maternal Grandmother Breast cancer Paternal Grandfather Thyroid disorder Maternal Grandfather Alcoholism Social History Housing: House Alcohol intake: never Patient Tobacco Use Status: Never used Tobacco e-Cigarette/Vaping Use: Former Use Substance Use Type: Marijuana service: Yes ([employer]) Current occupational status: employed 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 Current occupational exposures/hazards: No Cognitive needs: No Hearing needs: No Vision needs: No Review of Systems Const All systems reviewed & are unremarkable except as noted in HPI and below Physical Exam Vital Signs: Last Vital Signs Pulse 77 05/18/23 11:11 BP 140/70 H 05/18/23 11:11 Pulse Ox 96 05/18/23 11:11 Oxygen Delivery Method Room Air 05/18/23 11:11 BMI result Body Mass Index 26.3 Const Other: awake alert NAD TM inact and clear bilat Nares w mucoid d/c, turbinates erythematous and edematous bilat, no sinus tenderness w palp pharynx WNL LS CTAB RRR Assessment & Plan Assessment & Plan (1) Flu-like symptoms: Code(s): R68.89 - Other general symptoms and signs (2) Influenza A: Code(s): J10.1 - Influenza due to other identified influenza virus with other respiratory manifestations Plan: Viral swab obtained today and positive for influenza type A. I have sent an order for Tamiflu take as directed. Supportive care. Follow current CDC guidelines Plan Total time spent caring for the patient today was 30 minutes. This includes time spent before the visit reviewing the chart, time spent during the visit, and time spent after the visit on documentation This note is constructed using voice recognition software. While every effort has been made to ensure accuracy in regional training manager, still errors may have been included Sometimes, these errors may affect the content or meaning of the given sentence . Orders: Orders SARS-CoV2/FLU/RSV Today R68.89 - Other general symptoms and signs Medications: New oseltamivir (Tamiflu) 75 mg PO Q12H 10 caps 0RF 5 days Patient Instructions: Influenza (flu) is an infection in the lungs and breathing passages. It is caused by the influenza virus. There are different strains, or types, of the flu virus from year to year. Unlike the common cold, the flu comes on suddenly and the symptoms can be more severe. These symptoms include a cough, congestion, fever, chills, fatigue, aches, and pains. These symptoms may last for a few weeks. Although the flu can make you feel very sick, it usually doesn't cause serious health problems. Home treatment is usually all you need for flu symptoms. But your doctor may prescribe antiviral medicine to prevent other health problems, such as pneumonia, from developing. The risk of other health problems from the flu is highest for young children (under 5), older adults (over 65), women, people with long-term health conditions, people who live in nursing homes or long-term care centres, and indigenous peoples. How can you care for yourself at home? Get plenty of rest. Drink plenty of fluids. If you have to limit fluids because of a health problem, talk with your doctor before you increase the amount of fluids you drink. Take an egpx-jib-olbfsfh pain medicine if needed, such as acetaminophen (Tylenol), ibuprofen (Advil, Motrin), or naproxen (Aleve), to relieve fever, headache, and muscle aches. Read and follow all instructions on the label. No one younger than 18 should take aspirin. It has been linked to Yolie syndrome, a serious illness. Take any prescribed medicine exactly as directed. Do not smoke. Smoking can make the flu worse. If you need help quitting, talk to your doctor about stop-smoking programs and medicines. These can increase your chances of quitting for good. If the skin around your nose and lips becomes sore, put some petroleum jelly (such as Vaseline) on the area. To ease coughing: Suck on cough drops or plain, hard candy. Try an lhaf-qqh-hknpdyc cough or cold medicine. Read and follow all instructions on the label. Raise your head at night with an extra pillow. This may help you rest if coughing keeps you awake. To avoid spreading the flu Wash your hands regularly, and keep your hands away from your face. Stay home from school, work, and other public places until you are feeling better and your fever has been gone for at least 24 hours. The fever needs to have gone away on its own without the help of medicine. Ask people living with you to talk to their doctors about preventing the flu. They may get antiviral medicine to keep from getting the flu from you. To prevent the flu in the future, get the flu vaccine every fall. Encourage people living with you to get the vaccine. Cover your mouth when you cough or sneeze. If you can, cough or sneeze into the bend of your elbow, not your hands. When should you call for help? Call 911 anytime you think you may need emergency care. For example, call if: You have severe trouble breathing. You have a seizure. Call your doctor or nurse advice line now or seek immediate medical care if: You have trouble breathing. You have a fever with a stiff neck or a severe headache. You have pain or pressure in your chest or belly. You have a fever or cough that returns after getting better. You feel very sleepy, dizzy, or confused. You are not urinating. You have severe muscle pain. You have severe weakness, or you are unsteady. You have medical conditions that are getting worse Watch closely for changes in your health, and be sure to contact your doctor or nurse advice line if: You do not get better as expected. You are having a problem with your medicine. Coding Level of Care Code Est Pt Level 4 (85392) Diagnoses Flu-like symptoms R68.89 Influenza A J10.1
[2023-05-18 11:11] VITALS: BP 140/70; PULSE 77; O2SAT 96; BMI 26.3
== END 2023-05-18 12:02 | disposition home or self-care (01) ==
PROVIDERS: PCP Family Medicine; Visit Provider Nurse Practitioner Family
DX: R68.89 Other general symptoms and signs (principal); J10.1 Influenza due to other identified influenza virus with other respiratory manifestations
CPT/HCPCS: 99214

== ENCOUNTER 2023-05-18 14:19 | Outpatient (REF) | payer MEDICARE, SELFPAY ==
[2023-05-18 16:03] LABS: Influenza A PCR POSITIVE (Negative); Influenza B PCR NEGATIVE (Negative); Resp Syncy Virus RNA Qual PCR NEGATIVE (Negative); SARS COV2 PCR INHOUSE NEGATIVE (Negative)
== END 2023-05-18 14:20 | disposition home or self-care (01) ==
LOC: HO.LNP 14:19
PROVIDERS: Visit Provider Nurse Practitioner Family
DX: Z11.52 Encounter for screening for COVID-19 (principal); Z20.822 Contact with and (suspected) exposure to COVID-19; R68.89 Other general symptoms and signs
CPT/HCPCS: 0241U

== ENCOUNTER 2023-07-31 10:46 | Outpatient (AMB) | payer MEDICARE, SELFPAY ==
--- NOTE | 2023-07-31 10:57 | MHC.PC.OV ---
Vital Signs 07/31/23 10:58 Height 5 ft 9.5 in Weight 195 lb BMI 28.4 BP 126/60 Blood Pressure Location Lt brachial Position Sitting Pulse 57 Pulse Source Pulse Oximeter Pulse Oximetry (%) 97 Oxygen Delivery Method Room Air Intake Visit Reasons: f/u fatigue Intake Note: Patient is here for follow up on fatigue today. Allergies No Known Allergies Allergy (Verified 07/31/23 11:00) Medication List - Last Reconciled 07/31/23 by Kurt Richmond MD calcium polycarbophil (FiberCon) 625 mg PO DAILY 30 days Tobacco use date assessed: 07/31/23 Fall risk assessment: 1 Fall in past year Last assessed Fall Risk: 07/31/23 Dental Screening Dental Screen Date: 07/31/23 Did you have a dental visit in the last 12 months?: Yes Did you have a dental problem in the last 6 months where you did not have access to dental care?: No Was dental information given to patient?: Patient has dentist HPI f/u fatigue HPI Details 68 y/o male presents to f/u fatigue. Echocardiogram was unremarkable and had referred him to sleep medicine. Sleep medicine had tried to reach pt but he states he had been busy. He plans to get back to them. Fatigue has improved since he has passed busy season at work. Pt notes gavilax has been helping with his abd. bloating/constipation but he had run out. Had been taking miralax in the mean time but states this did not help as much. HPI Comments History of Present Illness Details Documentation assistance for Kurt Richmond MD, was provided by Joey Barriga, Video Production Intern on 07/31/2023 11:17 AM RG. Maggie, Dr. Richmond, have read, observed, and verified documentation. [facility] Medical History Concern about skin disease without diagnosis Chronic GERD Deviated nasal septum Elbow fracture Hiatal hernia Inguinal hernia Surgical History History of hernia repair H/O inguinal hernia repair Family History (Updated 07/31/23 @ 11:02 by Livier Curry CMA) Mother High cholesterol Father Esophageal cancer Maternal Grandmother Breast cancer Paternal Grandfather Thyroid disorder Maternal Grandfather Alcoholism Social History Housing: House Alcohol intake: never Patient Tobacco Use Status: Never used Tobacco e-Cigarette/Vaping Use: Former Use Substance Use Type: Marijuana service: Yes ([employer]) Current occupational status: employed 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 Shailesh Krishna, Diana Boogie, Levi Dobson and colleagues, with an educational matthiue from [employer]. Review of Systems Const Denies chills, Denies fatigue, Denies fever(s), Denies headache(s) and Denies weakness ENT Denies dizziness and Denies headache(s) Card Denies chest pain, Denies lightheadedness, Denies dyspnea and Denies other (Palpitations) Resp Denies cough, Denies dyspnea, Denies wheezing and Denies other ( shortness of breath) Musc Denies numbness and Denies tingling Neuro Denies dizziness, Denies headache(s), Denies numbness, Denies tingling, Denies paresthesias and Denies weakness Psych Denies anxiety and Denies depression Endo Denies fatigue Aller/Immun Denies wheezing Physical exam (Primary Care) Vital Signs: Last Vital Signs Pulse 57 07/31/23 10:58 BP 126/60 07/31/23 10:58 Pulse Ox 97 07/31/23 10:58 Oxygen Delivery Method Room Air 07/31/23 10:58 BMI result Body Mass Index 28.4 Tobacco/Smoking Status: Tobacco use Status Tobacco use date assessed 07/31/23 07/31/23 11:02 Patient Tobacco Use Status Never used Tobacco 07/31/23 11:02 e-Cigarette/Vaping Use Former Use 07/31/23 11:02 Thrive Assessment: Date of Thrive Assessment Date Thrive assessed 12/15/22 07/31/23 11:02 Const General: no acute distress and well developed Nutritional Appearance: well nourished Orientation/consciousness: patient oriented x3 HENMT Head: Yes normocephalic and Yes atraumatic Eyes General: appearance normal, both eyes and all related structures Pupils: Equal, round and reactive pupils present EOM: EOMs intact bilaterally Resp Effort & Inspection: normal respiratory effort Auscultation: clear to auscultation bilaterally Cardio Rate: regular rate Rhythm: regular rhythm Heart sounds: S1 normal heart sound present, S2 normal heart sound present, no gallops, Murmur heart sound present (faint) and no rubs Neuro General: patient oriented x3 and gait normal Cranial nerves: Yes Equal, round and reactive pupils present Psych Affect: normal affect Assessment and Plan Assessment & Plan (1) Fatigue: Code(s): R53.83 - Other fatigue Plan: Still?has?some?issues?with?fatigue?though?this?has?improved?since?he?is?past?the?busy?season?of?his?work- 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 He?had?acknowledged?fatigue?with?holding?breath/gasping?in?sleep?and?also?excessive?daytime?sleepiness. Was?referred?to?Sleep?Medicine?but?says?he?was?not?able?to?connect?with?them. I?have?made?a?new?referral?and?he?intends?to?call?them. (2) Hydrocele: Code(s): N43.3 - Hydrocele, unspecified Plan: Inguinal?pain?and?ultrasound?shows?cyst?verses?hydrocele Referred?to?Urology (3) Abdominal bloating: Code(s): R14.0 - Abdominal distension (gaseous) Plan: Has?use?MiraLax?and?other?medications?prescribed?by?Gastroenterology. Recent?colonoscopy?as?well.??Follow-up?with?Gastroenterology Orders: Orders Lipid Panel Today Z00.00 - Encounter for general adult medical examination without abnormal findings Microalbumin, Random (w Creat) Today I10 - Essential (primary) hypertension TSH reflex Free T4 Today Z00.00 - Encounter for general adult medical examination without abnormal findings UA and rflx microscopic Today Z00.00 - Encounter for general adult medical examination without abnormal findings Comprehensive [place]. Panel Fast Today Z00.00 - Encounter for general adult medical examination without abnormal findings Complete Blood Count Auto Diff Today Z00.00 - Encounter for general adult medical examination without abnormal findings Prostate Specific Antigen Scr Today Z12.5 - Encounter for screening for malignant neoplasm of prostate Coding Level of Care Code Est Pt Level 4 (55229) Diagnoses Fatigue R53.83 Hydrocele N43.3 Abdominal bloating R14.0
[2023-07-31 10:58] VITALS: BP 126/60; PULSE 57; O2SAT 97; BMI 28.4
== END 2023-07-31 12:37 | disposition home or self-care (01) ==
PROVIDERS: PCP Family Medicine; Visit Provider Family Medicine
DX: R53.83 Other fatigue (principal); N43.3 Hydrocele, unspecified; R14.0 Abdominal distension (gaseous)
CPT/HCPCS: 99214

== ENCOUNTER 2023-08-22 07:23 | Outpatient (AMB) | payer MEDICARE, SELFPAY ==
--- NOTE | 2023-08-22 07:29 | MHC.OFFVIS ---
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 Pt reports his sleeping patterns are erratic . He sometimes has trouble falling asleep, sometimes he has trouble staying asleep. This has been going on for 2 years. Refrigerated Cargo Clerk Required: No Allergies No Known Allergies Allergy (Verified 08/22/23 07:31) HPI Comments Details: 68y/o male comes for sleep evaluation . Main complaints-excessive daytime sleepiness, nonrestorative sleep Sleep questionnaire- Difficulty falling asleep-yes- 30-45 min Difficulty staying asleep-yes Number of [id number] Snoring-yes Witnessed apneas-yes Gasping arousals-yes Nocturia-no GERD-yes Vivid dreams-yes occasionally Acting out dreams -no Abnormal behavior in sleep-no ABnormal movements in sleep-yes- occasional startle Morning headaches-sometimes Excessive daytime sleepiness-yes Daytime naps- yes restless legs- /no Hallucinations- no sleep paralysis- /no Drop attacks- /no Sleep study-no Sleep Hygiene- Sleep time- irregular 10-2am Wake time -4am-8am coffee/stimulant use-none Phone Electronics use- Exercise-works on computer until he goes to bed Bedroom comfort- normal [facility] Medical History (Updated 08/22/23 @ 08:01 by Wendy David MD) Insomnia Snoring Concern about skin disease without diagnosis Chronic GERD Deviated nasal septum Elbow fracture Hiatal hernia Inguinal hernia Surgical History History of hernia repair H/O inguinal hernia repair Family History Mother High cholesterol Father Esophageal cancer Maternal Grandmother Breast cancer Paternal Grandfather Thyroid disorder Maternal Grandfather Alcoholism Social History Housing: House Alcohol intake: never Patient Tobacco Use Status: Never used Tobacco e-Cigarette/Vaping Use: Former Use Substance Use Type: Marijuana service: Yes ([employer]) Current occupational status: employed 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 Current occupational exposures/hazards: No Cognitive needs: No Hearing needs: No Vision needs: No Physical Exam Vital Signs: Last Vital Signs Pulse 57 08/22/23 07:32 Resp 16 08/22/23 07:32 BP 130/70 08/22/23 07:32 Pulse Ox 98 08/22/23 07:32 Oxygen Delivery Method Room Air 08/22/23 07:32 BMI result Body Mass Index 27.6 Const General: cooperative, healthy appearing and comfortable Nutritional Appearance: average body habitus Orientation/consciousness: patient oriented x3 Eyes Pupils: Equal, round and reactive pupils present Neuro Other: mallampatti grade 4 General: patient oriented x3, gait normal, tone normal, moves all extremities and no focal motor deficits Cranial nerves: Yes Facial sensation intact/muscles of mastication intact, Yes Equal, round and reactive pupils present, Yes Bilaterally intact EOM present, Yes Nystagmus not present, Yes Normal facial strength present, Yes Midline tongue present and Yes Symmetric palate elevation present Cognition (Neuro): normal cognition Gait exam (Neuro): Normal gait present Motor exam (neuro): 5/5 motor strength present throughout and Normal motor muscle tone present throughout Deep tendon reflexes (DTR's): Right triceps reflex intensity grade: 2+, Left triceps reflex intensity grade: 2+, Rt Biceps (C5, C6): 2+, Left biceps reflex intensity grade: 2+, Right brachioradialis reflex intensity grade: 2+, Left brachioradialis reflex intensity grade: 2+, Right patellar reflex intensity grade: 2+ and Left patellar reflex intensity grade: 2+ Coordination: blokni-dy-evuh test normal Assessment & Plan Assessment & Plan (1) Snoring: Code(s): R06.83 - Snoring Category: Medical (2) Insomnia: Comment: poor sleep hygiene Code(s): G47.00 - Insomnia, unspecified Category: Medical (3) Hypersomnia: Code(s): G47.10 - Hypersomnia, unspecified Category: Medical Plan Discussed in detail about sleep hygiene which is contributing to insomnia A handout on sleep hygiene was given to the patient. In lab sleep study to evaluate for sleep apnea, excessive daytime sleepiness. Check Vit B 12 Vit D levels Orders: Orders Vitamin B12 and Folate Today G47.10 - Hypersomnia, unspecified Vitamin D 25-OH (D2 and D3) Today G47.10 - Hypersomnia, unspecified RT PSG in-lab sleep study Today G47.00 - Insomnia, unspecified, G47.10 - Hypersomnia, unspecified, R06.83 - Snoring Coding Level of Care Code New Pt Level 4 (35688) Diagnoses Snoring R06.83 Insomnia G47.00 Hypersomnia G47.10 New Century Sleepiness Scale Questions Sitting and reading: moderate chance of dozing Watching TV: moderate chance of dozing Sitting inactive in a theater, movie etc.: high chance of dozing As a passenger in a car for an hour without break: high chance of dozing Lying down in the afternoon when circumstances permit: moderate chance of dozing Sitting and talking to someone: would never doze Sitting quietly after lunch without alcohol: slight chance of dozing In a car, while stopped for a few minutes in the traffic: would never doze ESS < 10: normal, ESS > 12: pathologic: 13
[2023-08-22 07:32] VITALS: BP 130/70; PULSE 57; RESP 16; O2SAT 98; BMI 27.6
== END 2023-08-22 08:12 | disposition home or self-care (01) ==
PROVIDERS: Absent Provider Psychiatry & Neurology Neurology; PCP Family Medicine; Visit Provider Psychiatry & Neurology Neurology
DX: R06.83 Snoring (principal); G47.00 Insomnia, unspecified; G47.10 Hypersomnia, unspecified
CPT/HCPCS: 99204

== ENCOUNTER → 2023-08-22 07:23 | Outpatient (BNVA) | payer MEDICARE, SELFPAY | PROVIDERS: Absent Provider Psychiatry & Neurology Neurology; PCP Family Medicine; Visit Provider Psychiatry & Neurology Neurology | DX: G47.00 Insomnia, unspecified (principal); G47.10 Hypersomnia, unspecified; R06.83 Snoring | CPT/HCPCS: 99202 ==

== ENCOUNTER 2024-02-18 09:21 | Outpatient (REF) | payer MEDICARE, SELFPAY ==
[2024-02-18 11:06] LABS: MANUAL DIFF FLAG NO
[2024-02-18 11:14] LABS: Appearance Urine Cloudy; Color Urine Yellow; Glucose Urine UA Negative (Negative); Leukocyte Esterase Urine Negative (Negative); Nitrite Urine Negative (Negative); PH 7.5 (5.0-9.0); Urine Blood Negative (Negative); Urine Ketones Negative (Negative); Urine Protein Negative (Neg-Trace)
[2024-02-18 11:15] LABS: Basophils Absolute Auto 0.1 X10*3/uL (0.0-0.2); Eosinophils Absolute Auto 0.2 X10*3/uL (0.0-0.4); Eosinophils Percent Auto 4.1 % (0-4); Hematocrit 43.1 % (42.0-52.0); Hemoglobin 14.3 g/dl (14.0-18.0); Imm Gran Abs Auto 0.01 X10*3/uL (0.00-0.03); Imm Gran Pct Auto 0.2 % (0.0-0.4); Lymphocytes Absolute Auto 1.5 X10*3/uL (1.2-4.9); Lymphocytes Percent Auto 28.7 % (20-40); Mean Corpuscular HGB Conc 33.2 g/dl (31.0-36.0); Mean Corpuscular Hemoglobin 30.8 pg (27.0-33.0); Mean Corpuscular Volume 92.9 fL (80.0-98.0); Mean Platelet Volume 10.3 fL (9.4-12.4); Monocytes Absolute Auto 0.3 X10*3/uL (0.1-1.2); Monocytes Percent Auto 6.3 % (2-11); Neutrophils Percent Auto 59.7 % (45-73); Platelet Count 156 X10*3/uL (160-400); Red Blood Count 4.64 X10*6/uL (4.60-5.80); Red Cell Distribution Width 13.2 % (11.0-16.0); White Blood Count 5.1 X10*3/uL (4.8-10.8)
[2024-02-18 11:36] LABS: Creatinine Urine 180.96 mg/dL; Microalbum/Creatinine Ratio Ur 2.7 ug/mg cr (<30)
[2024-02-18 11:52] LABS: Alanine Aminotransferase 13 U/L (0-40); Albumin Level 3.9 g/dL (3.5-5.0); Alkaline Phosphatase 52 U/L (39-117); Anion Gap 9 (12-20); Aspartate Amino Transferase 17 U/L (5-37); Bilirubin Total 0.6 mg/dL (0.0-1.0); Blood Urea Nitrogen 19 mg/dL (9-16); Calcium 8.8 mg/dL (8.4-10.2); Carbon Dioxide 27 mmol/L (22-29); Chloride 110 mmol/L (96-108); Cholesterol 172 mg/dL (<200); Estimated Glomerular Filt Rate > 60; Glucose Fasting 100 mg/dL (60-99); HDL Cholesterol 41 mg/dL (>40); LDL Cholesterol Calculated 118 mg/dL (<100); Potassium 3.9 mmol/L (3.3-5.1); Sodium 142 mmol/L (135-145); TSH reflex Free T4 1.81 uIU/mL (0.32-4.0); Total Protein 6.6 g/dL (6.5-8.0); Triglycerides 67 mg/dL (<150)
[2024-02-18 12:05] LABS: Folate 5.8 ng/mL (> or = 4.0); Prostate Specific Antigen Scr 2.28 ng/mL (<0.05-4.0); Vitamin B12 319 pg/mL (200-900)
[2024-02-22 15:29] LABS: Vitamin D 25-OH, D2 <4 ng/mL; Vitamin D 25-OH, D3 35 ng/mL; Vitamin D 25-OH, Total 35 ng/mL (30-100)
== END 2024-02-18 09:22 | disposition home or self-care (01) ==
LOC: HO.WFDLDS 09:21
PROVIDERS: Referring Provider Psychiatry & Neurology Neurology; Visit Provider Family Medicine
DX: Z00.00 Encounter for general adult medical examination without abnormal findings (principal); I10 Essential (primary) hypertension; Z12.5 Encounter for screening for malignant neoplasm of prostate; G47.10 Hypersomnia, unspecified
CPT/HCPCS: 36415; 80053; 80061; 81003; 82043; 82306; 82570; 82607; 82746; 84153; 84443; 85025

== ENCOUNTER 2024-02-27 15:59 | Outpatient (AMB) | payer MEDICARE, SELFPAY ==
--- NOTE | 2024-02-27 16:07 | A.OFFPC_ITS ---
Vital Signs 02/27/24 16:10 Height 5 ft 9.5 in Weight 189 lb 4 oz BMI 27.5 BP 120/60 Blood Pressure Location Rt brachial Position Sitting Respiration 16 Pulse 50 Pulse Source Pulse Oximeter Temp 97.9 F Temp Source Oral Pulse Oximetry (%) 95 Oxygen Delivery Method Room Air Intake Visit Reasons: Extended exam with f/u labs and health maint Intake Note: extended exam Allergies No Known Allergies Allergy (Verified 02/27/24 16:08) Medication List - Last Reconciled 02/27/24 by Kurt Richmond MD calcium polycarbophil (FiberCon) 625 mg PO DAILY 30 days Tobacco use date assessed: 07/31/23 Dental Screening Dental Screen Date: 07/31/23 HPI Extended exam with f/u labs and health maint HPI Details 68 y/o male presents for an extended exa m with f/u labs and health maintenance. Labs drawn 02/18/24. Reviewed labs with pt. Borderline elevated fasting glucose of 100. Triglycerides 67. TC 172. LDL 118. HDL 41. PSA 2.28. Pelvis ultrasound 12/29/22 showed L inguinal hernia repair with mesh. Incidental note made of cysts versus spermatocele in the left epididymis and small left hydrocele. Had a modified barium swallow test which showed some hiatal hernia. He notes he already had this fixed. He is not on any meds for GERD. Reports some minor chest pain that lasts about 5-10 minutes. He notes several episodes of minor chest pain and the example he gave was after raking leaves. Reports elbow pain. [facility] [place] Medical History (Updated 02/27/24 @ 16:44 by Joey Barriga) Insomnia Snoring Concern about skin disease without diagnosis Chronic GERD Deviated nasal septum Elbow fracture Hiatal hernia Inguinal hernia Surgical History History of hernia repair H/O inguinal hernia repair Family History Mother High cholesterol Father Esophageal cancer Maternal Grandmother Breast cancer Paternal Grandfather Thyroid disorder Maternal Grandfather Alcoholism Social History Housing: House Alcohol intake: never Patient Tobacco Use Status: Never used Tobacco e-Cigarette/Vaping Use: Former Use Substance Use Type: Marijuana service: Yes ([employer]) Current occupational status: employed 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 1. Little interest or pleasure in doing things: not at all 2. Feeling down, depressed, or hopeless: not at all 3. Trouble falling or staying asleep, or sleeping too much: several days 4. Feeling tired or having little energy: several days 5. Poor appetite or overeating: not at all 6. Feeling bad about yourself - or that you are a failure or have let yourself or your family down: not at all 7. Trouble concentrating on things, such as reading the newspaper or watching television: not at all 8. Moving or speaking so slowly that other people could have noticed. Or the opposite - being so fidgety or restless that you have been moving around a lot more than usual: not at all 9. Thoughts that you would be better off or of hurting yourself in some way: not at all Total score: 2 Depression Screening Interpretation: Negative Depression Screening Done: Yes [id number] - PHQ-9 Billing: Yes Source: Developed by Drs. Shailesh Krishna, Diana Boogie, Levi Dobson and colleagues, with an educational matthieu from [employer]. Thrive Questionnaire Date Thrive assessed: 02/27/24 I am a: Patient What is your living situation today?: I have a steady place to live Within the past 12 months, did the food you bought not last and you didn't have the money to get more?: I choose not to answer this question Within the past 12 months, did you worry whether your food would run out before you got money to buy more?: I choose not to answer this question Do you have trouble paying for medicines?: I choose not to answer this question Do you have trouble getting transportation to medical appointments?: I choose not to answer this question Do you have trouble paying your heating and electricity bill?: I choose not to answer this question Do you have trouble taking care of your child, family member or friend?: I choose not to answer this question Do you have trouble with day-to-day activities such as bathing, preparing meals, shopping, managing finances, etc.?: I choose not to answer this question Are you currently unemployed and looking for a job?: I choose not to answer this question Are you interested in more education?: I choose not to answer this question Please select the resources that you would like help with: None Currently or been in a relationship where the following occur: I choose not to answer THRIVE Score: 0 AUDIT C Alcohol Use Questionnaire (AUDIT-C) 1. How often do you have a drink containing alcohol?: Never 3. How often do you have six or more drinks on one occasion?: Never Total Score: 0 KEYANA-7 AMB Questionnaire KEYANA-7 Date KEYANA - 7 assessed: 02/27/24 Feeling nervous, anxious, or on edge: 0 = Not at all Not being able to stop or control worryin = Not at all Worrying too much about different things: 0 = Not at all Trouble relaxin = Not at all Being so restless that it is hard to sit still: 0 = Not at all Becoming easily annoyed or irritable: 0 = Not at all Feeling afraid as if something awful might happen: 0 = Not at all Total KEYANA-7 score (0-4 normal; 5-9 mild; 10-14 moderate; 15-21 severe): 0 Source: Developed by Drs. Shailesh Krishna, Diana Boogie, Levi Dobson and colleagues, with an educational matthieu from [employer]. Review of Systems Const Denies chills, Denies fatigue, Denies fever(s), Denies headache(s) and Denies weakness Eyes Denies change in vision ENT Denies dizziness and Denies headache(s) Card Reports chest pain and Denies dyspnea Resp Denies cough, Denies dyspnea, Denies wheezing and Denies other (shortness of breath) GI Denies abdominal pain, Denies melena, Denies hematochezia, Denies change in bowel habits, Denies dyspepsia and Denies nausea Denies hematuria and Denies dysuria Musc Details: Elbow pain Denies numbness and Denies tingling Skin/Breast Denies rash, Denies unusual bruising and Denies wounds Neuro Denies dizziness, Denies headache(s), Denies numbness, Denies Sensory deficit (Neuro), Denies tingling and Denies weakness Psych Denies anxiety and Denies depression Endo Denies fatigue Max/Lymph Denies easy bleeding and Denies easy bruising Aller/Immun Denies wheezing Physical exam (Primary Care) Vital Signs: Last Vital Signs Temp 97.9 F 02/27/24 16:10 Pulse 50 02/27/24 16:10 Resp 16 02/27/24 16:10 BP 120/60 02/27/24 16:10 Pulse Ox 95 02/27/24 16:10 Oxygen Delivery Method Room Air 02/27/24 16:10 BMI result Body Mass Index 27.5 Tobacco/Smoking Status: Tobacco use Status Tobacco use date assessed 07/31/23 02/27/24 16:13 Patient Tobacco Use Status Never used Tobacco 02/27/24 16:13 e-Cigarette/Vaping Use Former Use 02/27/24 16:13 PHQ-9: PHQ-9 Score PHQ-9: Total score 2 02/27/24 16:18 Depression Screening Interpretation: Negative Thrive Assessment: Date of Thrive Assessment Date Thrive assessed 02/27/24 02/27/24 16:13 Currently or been in a relationship where the following occur: I choose not to answer Const General: well developed; No acute distress Nutritional Appearance: well nourished Orientation/consciousness: patient oriented x3 HENMT Head: Yes normocephalic and Yes atraumatic Ears: hearing grossly normal bilaterally and TM's normal bilaterally General nose exam: Normal external nose present and Normal nares present Mouth: Normal oral and palatal mucosa present and moist mucous membranes Teeth and gingiva: dentition normal Throat: Yes posterior oropharynx normal Eyes General: appearance normal, both eyes and all related structures Pupils: Equal, round and reactive pupils present EOM: EOMs intact bilaterally Neck Neck: Yes normal visual inspection, Yes no lymphadenopathy and Yes trachea midline Thyroid: Thyroid normal Carotids: no bruits Lymphatic: no lymphadenopathy noted Chest Chest palpation & inspection: normal inspection of the chest Resp Effort & Inspection: normal respiratory effort Auscultation: clear to auscultation bilaterally Cardio Rate: bradycardic Rhythm: regular rhythm Heart sounds: S1 normal heart sound present, S2 normal heart sound present, no gallops, no murmurs and no rubs Bruits: no abdominal aortic bruits and no carotid bruits GI Palpation (GI): No Abdominal aortic bruit present, Soft to palpation, nontender, No hepatosplenomegaly present and No Rebound tenderness present Auscultation: normal bowel sounds General: Yes no CVA tenderness Back/Spine/Pelvis Back: no CVA tenderness Cervical Spine: cervical ROM normal and No Cervical spine tenderness Thoracic/Lumbar Spine: thoraco-lumbar ROM normal, No pain with thoraco-lumbar ROM, No thoracic spinal tenderness and No lumbar spinal tenderness Skin Lesions: no lesions Rashes: no rashes Trauma: no lacerations or abrasions Wounds: no wounds Nails: normal Neuro General: patient oriented x3 and gait normal Cranial nerves: Yes Equal, round and reactive pupils present Cognition (Neuro): normal cognition Gait exam (Neuro): Normal gait present Motor exam (neuro): 5/5 motor strength present throughout Sensory Exam: No Sensory deficit (Neuro) Deep tendon reflexes (DTR's): Right patellar reflex intensity grade: 2+ and Left patellar reflex intensity grade: 2+ Extrem General: Yes normal to inspection and No edema Psych Appearance: grossly normal Affect: normal affect Attitude: cooperative Thought process: Normal thought process present Coding Level of Care Code Est Pt Level 4 (95649) Diagnoses Elevated LDL cholesterol level E78.00 Inguinal hernia K40.90 Hydrocele N43.3 Chest pain R07.9 Screening for prostate cancer Z12.5 Elbow pain M25.529 Screening for colon cancer Z12.11 Hiatal hernia K44.9 GERD (gastroesophageal reflux disease) K21.9 Adult general medical exam Z00.00 Additional Codes PHQ-9 - 27162 - PHQ-9 Billing: Yes ([id number]) Assessment & Plan Assessment & Plan (1) Elevated LDL cholesterol level: Code(s): E78.00 - Pure hypercholesterolemia, unspecified Category: Medical Plan: LDL?cholesterol?is?above?goal?of?less?than?100?though?it?has?improve d?from?prior?check?a?year?ago Encouraged?patient?work?on?a?diet?low?in?saturated?fats?and?cholesterol (2) Inguinal hernia: Code(s): K40.90 - Unilateral inguinal hernia, without obstruction or gangrene, not specified as recurrent Category: Medical Plan: Recent?CT?scan?suspicious?for?new?small?inguinal?hernia.??Patient?also?has?hydro jayson?and?has?complaints?left?inguinal?pain Referred?general?surgery (3) Hydrocele: Code(s): N43.3 - Hydrocele, unspecified Category: Medical Plan: As?above (4) Chest pain: Code(s): R07.9 - Chest pain, unspecified Category: Medical Plan: Patient?notes?several?episodes?of?left- sided?chest?pain?and?example?he?gives?is?after?raking?leaves.??No?current?chest? pain. EKG: ?EKG?shows?sinus?bradycardia?with?normal? axis,?no?hypertrophy?no?ST-T-wave?changes Will?get?stress?test Advised?him?to?take?it?easy?and?if?he?is?having?pain?he?should?rest.??If pain?does?not?go?away?in?a?few minutes?he should?seek?medical?attention. (5) Screening for prostate cancer: Code(s): Z12.5 - Encounter for screening for malignant neoplasm of prostate Category: Medical Plan: PSA?was?within?limits Will?continue?screening (6) Elbow pain: Code(s): M25.529 - Pain in unspecified elbow Category: Medical Plan: Left?elbow?pain? with?episodes?if?tingling?and?numbness?from?elbow?down?his?arm?his?hand Likely?tendinitis?with?ulnar nerve?impingement Offered?physical?therapy/occupation?therapy Will?check?an?x-ray?and?patient?will?if?not?relative?rest Will?offer?physical?therapy/occupational?therapy?again?based?findings?and?whethe r?or?not?patient?has?improved He?will?let?me?know?if?numbness?tingling?worsens (7) Screening for colon cancer: Code(s): Z12.11 - Encounter for screening for malignant neoplasm of colon Category: Medical Plan: Followed?by?Gastroenterology (8) Hiatal hernia: Code(s): K44.9 - Diaphragmatic hernia without obstruction or gangrene Category: Medical Plan: Patient?has?had?repair?and?is?followed?by?Gastroenterology Follow-up?as?recommended (9) GERD (gastroesophageal reflux disease): Code(s): K21.9 - Gastro-esophageal reflux disease without esophagitis Category: Medical Plan: GI is Dr Isael Bailey He?notes?very?few?symptoms?anymore Avoid?trigger?foods,?avoid?eating?too?close?bedtime?and?avoid?over?filling Call?come?to?office?if?symptoms?worsening?or?follow-up?with?synthetic chemist (10) Adult general medical exam: Code(s): Z00.00 - Encounter for general adult medical examination without abnormal findings Category: Medical Plan: 68-year-old?male?presents?for?an?extended?exam Orders: Orders AMB EKG-In Office Today R07.9 - Chest pain, unspecified XR elbow RT 2V Today M25.529 - Pain in unspecified elbow CA stress test Today R07.9 - Chest pain, unspecified Referrals General Surgery Referral K40.90 - Unilateral inguinal hernia, without obstruction or gangrene, not specified as recurrent, N43.3 - Hydrocele, unspecified, R10.32 - Left lower quadrant pain
[2024-02-27 16:10] VITALS: BP 120/60; PULSE 50; RESP 16; TEMP 36.6; O2SAT 95; BMI 27.5
== END 2024-02-27 17:05 | disposition home or self-care (01) ==
PROVIDERS: PCP Family Medicine; Visit Provider Family Medicine
DX: E78.00 Pure hypercholesterolemia, unspecified (principal); K40.90 Unilateral inguinal hernia, without obstruction or gangrene, not specified as recurrent; N43.3 Hydrocele, unspecified; R07.9 Chest pain, unspecified; Z12.5 Encounter for screening for malignant neoplasm of prostate; M25.529 Pain in unspecified elbow; Z12.11 Encounter for screening for malignant neoplasm of colon; K44.9 Diaphragmatic hernia without obstruction or gangrene; K21.9 Gastro-esophageal reflux disease without esophagitis; Z00.00 Encounter for general adult medical examination without abnormal findings

== ENCOUNTER → 2024-02-27 15:59 | Outpatient (BNVA) | payer MEDICARE, SELFPAY | PROVIDERS: PCP Family Medicine; Visit Provider Family Medicine | DX: E78.00 Pure hypercholesterolemia, unspecified (principal); K40.90 Unilateral inguinal hernia, without obstruction or gangrene, not specified as recurrent; N43.3 Hydrocele, unspecified; R07.9 Chest pain, unspecified; M25.529 Pain in unspecified elbow; K44.9 Diaphragmatic hernia without obstruction or gangrene; K21.9 Gastro-esophageal reflux disease without esophagitis | CPT/HCPCS: 96127; 99212 ==

== ENCOUNTER 2024-03-11 13:04 | Outpatient (AMB) | payer MEDICARE, SELFPAY ==
--- NOTE | 2024-03-11 13:06 | A.OFFVIS_ITS ---
Vital Signs 03/11/24 13:15 Height 5 ft 9.5 in Weight 185 lb BMI 26.9 BP 152/72 H Blood Pressure Location Rt brachial Position Sitting Pulse 64 Intake Visit Reasons: Unilateral inguinal hernia Intake Note: Patient referred by pcp Dr. Richmond for unilateral inguinal hernia. Present for 2yrs. Hx of hiatal hernia repair 1.5yrs at [facility]. Reports hernia symptoms never went away. Patient c/o: pinching sensation at times. Diarrhea, soft stool. Precision Lathe Operator Required: No Accompanied by: Self / Same As Patient Allergies No Known Allergies Allergy (Verified 03/11/24 13:12) HPI Comments Details: Patient presents for evaluation of occasional left groin/inguinal pain. Patient was roughly 1 and half years status post open left inguinal hernia repair at an outside facility. He now has occasional discomfort along the medial aspect of his incision and along the proximal scrotal line of the ipsilateral side. He is otherwise tolerating a diet. He is having fairly regular bowel habits. He has had colonoscopy relatively recently which he says is within normal limits. Patient takes stool softeners to help with his bowel movements. He does not do any extremely strenuous activities. He has not noticed a bulge per se in the groin. His activity level is not limited by the discomfort. Chart was reviewed and patient evaluate [facility] Medical History Insomnia Snoring Concern about skin disease without diagnosis Chronic GERD Deviated nasal septum Elbow fracture Hiatal hernia Inguinal hernia Surgical History History of hernia repair H/O inguinal hernia repair Family History Mother High cholesterol Father Esophageal cancer Maternal Grandmother Breast cancer Paternal Grandfather Thyroid disorder Maternal Grandfather Alcoholism Social History Housing: House Alcohol intake: never Patient Tobacco Use Status: Never used Tobacco e-Cigarette/Vaping Use: Former Use Substance Use Type: Marijuana service: Yes ([employer]) Current occupational status: employed 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 Abdomen is soft, benign. Several scars from prior hiatal hernia surgery well healed. Right groin negative. Genitalia within normal limits small right hydrocele, left groin incision clean dry and intact. No evidence of any recurrence or infection. Assessment & Plan Assessment & Plan (1) Inguinodynia, left: Code(s): R10.32 - Left lower quadrant pain Category: Surgical Plan I reassured the patient that at present time, he has no evidence of recurrence of his hernia. He has no evidence of any infection. The symptoms are most probably related to scarring and possible nerve involvement with this. He does not require any further surgical intervention. If his symptoms were incapacitating, which he says they are not, he could be referred to the chronic pain Clinic but he does not feel his symptoms warrant this at this time. All questions answered. Patient otherwise follow-up p.r.n.. Coding Level of Care Code New Pt Level 4 (38123) Diagnoses Inguinodynia, left R10.32
[2024-03-11 13:15] VITALS: BP 152/72; PULSE 64; BMI 26.9
== END 2024-03-11 13:23 | disposition home or self-care (01) ==
PROVIDERS: PCP Family Medicine; Referring Provider Family Medicine; Visit Provider Surgery
DX: R10.32 Left lower quadrant pain (principal)
CPT/HCPCS: 99204

== ENCOUNTER → 2024-03-11 13:04 | Outpatient (BNVA) | payer MEDICARE, SELFPAY | PROVIDERS: PCP Family Medicine; Referring Provider Family Medicine; Visit Provider Surgery | DX: R10.32 Left lower quadrant pain (principal) | CPT/HCPCS: 99202 ==

== ENCOUNTER → 2024-03-20 10:10 | Outpatient (REF) | payer MEDICARE, SELFPAY ==
--- NOTE | 2024-03-20 10:14 | CA_ITS ---
Acquisition Time: 2024-03-20 10:25:04 Total Exercise Time: 00:09:59 Test Indications: chest pain,unspecified Medications: Protocol: ANGIE Max HR: 134 BPM 88% of Pred: 151 BPM Max BP: 168/072 mmHG Max Work Load: 10.3 METS Exercise Stress Test with exercise 9 mins 59 secs of Angie Protocol, achieving 81% MPHR, with reports of arms pain from having to pull himself on the tread to stay upfront, otherwise without any anginal symptoms, without any arrthymias, with normotensive response to exercise. Without any EKG changes meeting criteria for ischemia. Test reviewed with Dr. Tinoco. Referred By: Kurt Richmond Overread By: MARIANNE ALTAMIRANO
== END ==
LOC: HO.CARD 10:10
PROVIDERS: PCP Family Medicine; Visit Provider Family Medicine
DX: R07.9 Chest pain, unspecified (principal)
CPT/HCPCS: 93017

== ENCOUNTER → 2024-03-20 10:14 | Outpatient (BNV) | payer MEDICARE, SELFPAY | PROVIDERS: PCP Family Medicine; Visit Provider Nurse Practitioner Family | DX: R07.9 Chest pain, unspecified (principal) | CPT/HCPCS: 93016; 93018 ==

== ENCOUNTER 2024-04-11 13:48 | Outpatient (REF) | payer MEDICARE, SELFPAY ==
[2024-04-11 18:43] LABS: Influenza A PCR NEGATIVE (Negative); Influenza B PCR NEGATIVE (Negative); Resp Syncy Virus RNA Qual PCR NEGATIVE (Negative); SARS COV2 PCR INHOUSE NEGATIVE (Negative)
== END 2024-04-11 13:49 | disposition home or self-care (01) ==
LOC: HO.LAB 13:48
PROVIDERS: PCP Family Medicine; Visit Provider Family Medicine
DX: Z20.822 Contact with and (suspected) exposure to COVID-19 (principal); B34.9 Viral infection, unspecified; R07.9 Chest pain, unspecified; K44.9 Diaphragmatic hernia without obstruction or gangrene; R10.32 Left lower quadrant pain
CPT/HCPCS: 0241U; 99212

== ENCOUNTER 2024-04-11 13:48 | Outpatient (AMB) | payer MEDICARE, SELFPAY ==
--- NOTE | 2024-04-11 14:17 | MHC.PC.OV ---
Vital Signs 04/11/24 14:19 Height 5 ft 9.5 in Weight 186 lb 6 oz BMI 27.1 BP 110/68 Blood Pressure Location Lt brachial Position Sitting Respiration 14 Pulse 52 Pulse Source Pulse Oximeter Temp 98.2 F Temp Source Oral Pulse Oximetry (%) 97 Oxygen Delivery Method Room Air Intake Visit Reasons: f/u chest pain Intake Note: f/u chest pain Allergies No Known Allergies Allergy (Verified 04/11/24 14:18) Tobacco use date assessed: 07/31/23 Dental Screening Dental Screen Date: 07/31/23 HPI f/u chest pain HPI Details 68 y/o female presents to f/u chest pain. Had a few episodes of chest pain - EKG looked okay. Had ordered a stress test. Notes he feels unwell today, ? viral illness. Stress test had looked fine. Hx of hiatal hernia, schatzki's ring and GERD. He states elbow pain seems to have resolved. 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) Left inguinal hernia (08/24/22) Insomnia Snoring Concern about skin disease without diagnosis Chronic GERD Deviated nasal septum Elbow fracture Hiatal hernia Inguinal hernia Surgical History (Updated 03/11/24 @ 13:25 by Ru Lynn MD) History of hernia repair H/O inguinal hernia repair Family History Mother High cholesterol Father Esophageal cancer Maternal Grandmother Breast cancer Paternal Grandfather Thyroid disorder Maternal Grandfather Alcoholism Social History Housing: House Alcohol intake: never Patient Tobacco Use Status: Never used Tobacco e-Cigarette/Vaping Use: Former Use Substance Use Type: Marijuana service: Yes ([employer]) Current occupational status: employed 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 1. Little interest or pleasure in doing things: not at all 2. Feeling down, depressed, or hopeless: not at all 3. Trouble falling or staying asleep, or sleeping too much: several days 4. Feeling tired or having little energy: more than half the days 5. Poor appetite or overeating: more than half the days 6. Feeling bad about yourself - or that you are a failure or have let yourself or your family down: not at all 7. Trouble concentrating on things, such as reading the newspaper or watching television: not at all 8. Moving or speaking so slowly that other people could have noticed. Or the opposite - being so fidgety or restless that you have been moving around a lot more than usual: not at all 9. Thoughts that you would be better off or of hurting yourself in some way: not at all Total score: 5 Source: Developed by Drs. Shailesh Krishna, Diana Boogie, Levi Dobson and colleagues, with an educational matthieu from [employer]. Thrive Questionnaire Date Thrive assessed: 02/27/24 I am a: Patient What is your living situation today?: I have a steady place to live Within the past 12 months, did the food you bought not last and you didn't have the money to get more?: Never true Within the past 12 months, did you worry whether your food would run out before you got money to buy more?: Never true Do you have trouble paying for medicines?: No Do you have trouble getting transportation to medical appointments?: No Do you have trouble paying your heating and electricity bill?: No Do you have trouble taking care of your child, family member or friend?: No Do you have trouble with day-to-day activities such as bathing, preparing meals, shopping, managing finances, etc.?: No Are you currently unemployed and looking for a job?: No Are you interested in more education?: No Please select the resources that you would like help with: None Currently or been in a relationship where the following occur: No concerns reported THRIVE Score: 0 AUDIT C Alcohol Use Questionnaire (AUDIT-C) 1. How often do you have a drink containing alcohol?: Never Total Score: 0 KEYANA-7 AMB Questionnaire KEYANA-7 Date KEYANA - 7 assessed: 02/27/24 Feeling nervous, anxious, or on edge: 0 = Not at all Not being able to stop or control worryin = Not at all Worrying too much about different things: 0 = Not at all Trouble relaxin = Not at all Being so restless that it is hard to sit still: 0 = Not at all Becoming easily annoyed or irritable: 0 = Not at all Feeling afraid as if something awful might happen: 0 = Not at all Total KEYANA-7 score (0-4 normal; 5-9 mild; 10-14 moderate; 15-21 severe): 0 Source: Developed by Drs. Shailesh Krishna, Diana Boogie, Levi Dobson and colleagues, with an educational matthieu from [employer]. Review of Systems Const Denies chills, Denies fatigue, Denies fever(s), Denies headache(s) and Denies weakness ENT Denies dizziness and Denies headache(s) Card Denies chest pain, Denies lightheadedness, Denies dyspnea and Denies other (Palpitations) Resp Denies cough, Denies dyspnea, Denies wheezing and Denies other ( shortness of breath) Musc Denies numbness and Denies tingling Neuro Denies dizziness, Denies headache(s), Denies numbness, Denies tingling, Denies paresthesias and Denies weakness Psych Denies anxiety and Denies depression Endo Denies fatigue Aller/Immun Denies wheezing Physical exam (Primary Care) Vital Signs: Last Vital Signs Temp 98.2 F 04/11/24 14:19 Pulse 52 04/11/24 14:19 Resp 14 04/11/24 14:19 BP 110/68 04/11/24 14:19 Pulse Ox 97 04/11/24 14:19 Oxygen Delivery Method Room Air 04/11/24 14:19 BMI result Body Mass Index 27.1 Tobacco/Smoking Status: Tobacco use Status Tobacco use date assessed 07/31/23 04/11/24 14:24 Patient Tobacco Use Status Never used Tobacco 04/11/24 14:24 e-Cigarette/Vaping Use Former Use 04/11/24 14:24 PHQ-9: PHQ-9 Score PHQ-9: Total score 5 04/11/24 14:46 Thrive Assessment: Date of Thrive Assessment Date Thrive assessed 02/27/24 04/11/24 14:24 Currently or been in a relationship where the following occur: No concerns reported Const General: no acute distress and well developed Nutritional Appearance: well nourished Orientation/consciousness: patient oriented x3 [facility] Head: Yes normocephalic and Yes atraumatic Eyes General: appearance normal, both eyes and all related structures Pupils: Equal, round and reactive pupils present EOM: EOMs intact bilaterally Resp Effort & Inspection: normal respiratory effort Auscultation: clear to auscultation bilaterally Cardio Rate: regular rate Rhythm: regular rhythm Heart sounds: S1 normal heart sound present, S2 normal heart sound present, no gallops, no murmurs and no rubs Neuro General: patient oriented x3 and gait normal Cranial nerves: Yes Equal, round and reactive pupils present Psych Affect: normal affect Coding Level of Care Code Est Pt Level 4 (09874) Diagnoses Chest pain R07.9 Viral illness B34.9 Hiatal hernia K44.9 Elbow pain M25.529 Assessment & Plan Assessment & Plan (1) Chest pain: Code(s): R07.9 - Chest pain, unspecified Category: Medical Plan: Follow-up?on?chest?pain.??His?EKG?had?looked?okay?and?recent?stress?test?was?normal. Does?not?appear?to?be?cardiac?pain Of?note,?patient?also?has?hiatal?hernia?with?Schatzki's?ring?and?may?getting?some?reflux Advised?that?if?he?has?chest?pain?should?sit?and?rest?and?can?also?try?antacids.??If?pain?persists?longer?than?a?few?minutes?however?should?seek?medical?attention (2) Viral illness: Code(s): B34.9 - Viral infection, unspecified Category: Medical Plan: He?nasal?swab?sent?to?lab?to?check?for?COVID/flu/RSV est & fluids encouraged (3) Hiatal hernia: Code(s): K44.9 - Diaphragmatic hernia without obstruction or gangrene Category: Medical Plan: As?above (4) Elbow pain: Code(s): M25.529 - Pain in unspecified elbow Category: Medical Plan: This?has?resolved Likely?tendinitis?and?possible?nerve?compression?as?he?rests?his?arm?on?his?guitar Advised?taking?frequent?breaks From?guitar?practice?he?will?let?me?know?if?worsens?and?would?refer?to?occupational?therapy Orders: Orders SARS-CoV2/FLU/RSV Today B34.9 - Viral infection, unspecified, Z20.822 - Contact with and (suspected) exposure to COVID-19 Referrals Urology Referral R10.32 - Left lower quadrant pain
[2024-04-11 14:19] VITALS: BP 110/68; PULSE 52; RESP 14; TEMP 36.8; O2SAT 97; BMI 27.1
== END 2024-04-11 14:50 | disposition home or self-care (01) ==
PROVIDERS: PCP Family Medicine; Visit Provider Family Medicine
DX: R07.9 Chest pain, unspecified (principal); B34.9 Viral infection, unspecified; K44.9 Diaphragmatic hernia without obstruction or gangrene; M25.529 Pain in unspecified elbow

== ENCOUNTER 2024-12-19 11:52 | Outpatient (AMB) | payer MEDICARE, SELFPAY ==
--- NOTE | 2024-12-19 11:58 | MHC.PC.OV ---
Vital Signs 12/19/24 12:05 Height 5 ft 9.5 in Weight 181 lb 2 oz BMI 26.4 BP 126/80 Blood Pressure Location Rt brachial Position Sitting Respiration 14 Pulse 60 Pulse Source Pulse Oximeter Pulse Oximetry (%) 97 Oxygen Delivery Method Room Air Oxygen Flow Rate 98.1 Intake Visit Reasons: f/u chronic conditions Intake Note: Tee presents in the office today for a follow up to his chronic conditions. Patient has not been able to schedule with urology. Allergies No Known Allergies Allergy (Verified 12/19/24 12:02) Medication List - Last Reconciled 12/19/24 by Kurt Richmond MD polyethylene glycol 3350 (Gavilax) 17 grams PO DAILY Tobacco use date assessed: 12/19/24 Fall risk assessment: No Falls in past year Last assessed Fall Risk: 12/19/24 Dental Screening Dental Screen Date: 12/19/24 Did you have a dental visit in the last 12 months?: Yes Did you have a dental problem in the last 6 months where you did not have access to dental care?: No Was dental information given to patient?: Patient has dentist HPI f/u chronic conditions HPI Details 69 y/o male presents to f/u chronic conditions. Had referred him to urology for ongoing inguinal pain. Had been following up with thoracic surgery for reducible hiatal hernia. They were to review his swallow study and call him later with recommendations for next steps but pt notes he has not received any calls yet. Pt reports ongoing fatigue. Denies chest pain, sweats. Notes he does wake up wide awake in the middle of the night and gets about 4 hours of sleep. He notes he feels good after sleeping those 4 hours or so. HPI Comments History of Present Illness Details Documentation assistance for Kurt Richmond MD, was provided by Joey Barriga,? Senior Administrative Assistant on at 1:00 PM EST. I, Dr. Richmond, have read, observed, and verified documentation. ?? 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) Left inguinal hernia (08/24/22) Insomnia Snoring Concern about skin disease without diagnosis Chronic GERD Deviated nasal septum Elbow fracture Hiatal hernia Inguinal hernia Surgical History (Updated 03/11/24 @ 13:25 by Ru Lynn MD) History of hernia repair H/O inguinal hernia repair Family History Mother High cholesterol Father Esophageal cancer Maternal Grandmother Breast cancer Paternal Grandfather Thyroid disorder Maternal Grandfather Alcoholism Social History (Updated 12/19/24 @ 12:05 by Regina Wliliam MA) Housing: House Alcohol intake: never Patient Tobacco Use Status: Never used Tobacco e-Cigarette/Vaping Use: Former Use Second Hand Smoke Exposure: No Substance Use Type: Marijuana service: Yes ([employer]) Current occupational status: employed 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 Current occupational exposures/hazards: No Cognitive needs: No Hearing needs: No Vision needs: No Questionnaire Thrive Questionnaire Date Thrive assessed: 04/11/24 I am a: Patient What is your living situation today?: I have a steady place to live Within the past 12 months, did the food you bought not last and you didn't have the money to get more?: Never true Within the past 12 months, did you worry whether your food would run out before you got money to buy more?: Never true Do you have trouble paying for medicines?: No Do you have trouble getting transportation to medical appointments?: No Do you have trouble paying your heating and electricity bill?: No Do you have trouble taking care of your child, family member or friend?: No Do you have trouble with day-to-day activities such as bathing, preparing meals, shopping, managing finances, etc.?: No Are you currently unemployed and looking for a job?: No Are you interested in more education?: No Please select the resources that you would like help with: None Currently or been in a relationship where the following occur: No concerns reported THRIVE Score: 0 KEYANA-7 AMB Questionnaire KEYANA-7 Date KEYANA - 7 assessed: 02/27/24 Source: Developed by Drs. Shailesh Krishna, Diana Boogie, Levi Dobson and colleagues, with an educational matthieu from [employer]. Review of Systems Const Denies chills, Reports fatigue, Denies fever(s), Denies headache(s) and Denies weakness ENT Denies dizziness and Denies headache(s) Card Denies dyspnea Resp Denies cough, Denies dyspnea, Denies wheezing and Denies other (shortness of breath) Musc Denies numbness and Denies tingling Neuro Denies dizziness, Denies headache(s), Denies numbness, Denies tingling and Denies weakness Psych Denies anxiety and Denies depression Endo Reports fatigue Aller/Immun Denies wheezing Physical exam (Primary Care) Vital Signs: Last Vital Signs Pulse 60 12/19/24 12:05 Resp 14 12/19/24 12:05 BP 126/80 12/19/24 12:05 Pulse Ox 97 12/19/24 12:05 Oxygen Delivery Method Room Air 12/19/24 12:05 Oxygen Flow Rate 98.1 12/19/24 12:05 BMI result Body Mass Index 26.4 Tobacco/Smoking Status: Tobacco use Status Tobacco use date assessed 12/19/24 12/19/24 12:09 Patient Tobacco Use Status Never used Tobacco 12/19/24 12:05 e-Cigarette/Vaping Use Former Use 12/19/24 12:05 Thrive Assessment: Date of Thrive Assessment Date Thrive assessed 04/11/24 12/19/24 12:00 Currently or been in a relationship where the following occur: No concerns reported Const General: well developed; No acute distress Nutritional Appearance: well nourished Orientation/consciousness: patient oriented x3 HENMT Head: Yes normocephalic and Yes atraumatic Eyes General: appearance normal, both eyes and all related structures Pupils: Equal, round and reactive pupils present EOM: EOMs intact bilaterally Resp Effort & Inspection: normal respiratory effort Neuro General: patient oriented x3 and gait normal Cranial nerves: Yes Equal, round and reactive pupils present Psych Affect: normal affect Coding Level of Care Code Est Pt Level 4 (39289) Diagnoses Left inguinal pain R10.32 Hiatal hernia K44.9 Elbow pain M25.529 Fatigue R53.83 Difficulty sleeping G47.9 Hypersomnia G47.10 Assessment & Plan Assessment & Plan (1) Left inguinal pain: Code(s): R10.32 - Left lower quadrant pain Category: Medical Plan: Had referred patient to urology. They had difficulty reaching him and he has not been scheduled yet. Will ask the office to help get him scheduled (2) Hiatal hernia: Code(s): K44.9 - Diaphragmatic hernia without obstruction or gangrene Category: Medical Plan: History of hiatal hernia and repair He saw his thoracic surgeon who noted renewed narrowing of his esophagus. Patient will call to follow-up with the surgeon regarding next steps. He will also call his plywood layup line back feeder (3) Elbow pain: Code(s): M25.529 - Pain in unspecified elbow Category: Medical Plan: Has ongoing right elbow pain which he notes is only when he plays guitar Recommended he work on trying to change the way that he is playing or put a cushion between his arm and guitar. He can also try an OTC forearm brace If these are not improving his symptoms he will let me know and I refer him to occupation therapy (4) Fatigue: Code(s): R53.83 - Other fatigue Category: Medical (5) Difficulty sleeping: Code(s): G47.9 - Sleep disorder, unspecified Category: Medical (6) Hypersomnia: Code(s): G47.10 - Hypersomnia, unspecified Category: Medical Plan Patient notes some daytime sleepiness and fatigue. He also has some insomnia and has difficulty with waking up at night and not being able to fall back asleep. Will have him see sleep Medicine to rule out sleep apnea Also recommended he read about sleep hygiene Orders: Orders Comprehensive Harper. Panel Fast Today Z00.00 - Encounter for general adult medical examination without abnormal findings TSH reflex Free T4 Today Z00.00 - Encounter for general adult medical examination without abnormal findings UA CC w/rflx Micro + Cult Today Z00.00 - Encounter for general adult medical examination without abnormal findings Complete Blood Count Auto Diff Today Z00.00 - Encounter for general adult medical examination without abnormal findings LDL Cholesterol Direct Today E78.5 - Hyperlipidemia, unspecified Lipid Panel Today Z00.00 - Encounter for general adult medical examination without abnormal findings Microalbumin, Random (w Creat) Today I10 - Essential (primary) hypertension Referrals Sleep Medicine Referral G47.10 - Hypersomnia, unspecified
[2024-12-19 12:05] VITALS: BP 126/80; PULSE 60; RESP 14; O2SAT 97; BMI 26.4
== END 2024-12-19 13:07 | disposition home or self-care (01) ==
LOC: HO.HMCFM 11:53
PROVIDERS: PCP Family Medicine; Visit Provider Family Medicine
DX: R10.32 Left lower quadrant pain (principal); K44.9 Diaphragmatic hernia without obstruction or gangrene; M25.529 Pain in unspecified elbow; R53.83 Other fatigue; G47.9 Sleep disorder, unspecified; G47.10 Hypersomnia, unspecified

== ENCOUNTER → 2024-12-19 11:52 | Outpatient (BNVA) | payer MEDICARE, SELFPAY | PROVIDERS: PCP Family Medicine; Visit Provider Family Medicine | DX: R10.32 Left lower quadrant pain (principal); K44.9 Diaphragmatic hernia without obstruction or gangrene; R53.83 Other fatigue; G47.10 Hypersomnia, unspecified; I10 Essential (primary) hypertension | CPT/HCPCS: 99212 ==

== ENCOUNTER 2025-01-30 12:51 | Outpatient (AMB) | payer MEDICARE, SELFPAY ==
--- NOTE | 2025-01-30 13:10 | MHC.PC.OV ---
Vital Signs 01/30/25 13:14 Height 5 ft 9.5 in Weight 185 lb 6 oz BMI 27.0 BP 108/68 Blood Pressure Location Rt brachial Position Sitting Respiration 14 Pulse 59 Pulse Source Pulse Oximeter Temp 97.6 F Temp Source Temporal Artery Scan Pulse Oximetry (%) 96 Oxygen Delivery Method Room Air Intake Visit Reasons: [facility] cataract surgery on 02/13/25 Intake Note: Tee presents in the office today for a pre-op for Lasik cataract surgery Allergies No Known Allergies Allergy (Verified 01/30/25 13:12) Tobacco use date assessed: 01/30/25 Dental Screening Dental Screen Date: 01/30/25 Did you have a dental visit in the last 12 months?: Yes Did you have a dental problem in the last 6 months where you did not have access to dental care?: No Was dental information given to patient?: Patient has dentist HPI [facility] cataract surgery on 02/13/25 HPI Details Patient presents for preoperative clearance prior to Cataract Surgery Procedure: Date:?R eye February 13, 2025. L eye February 27, 2025 Surgeon: Dr Briceño Anesthesia: Local, Sedation Cardiac Hx: Cardiac murmur evaluated by echocardiogram; benign. Episode of chest pain 02/2024 and stress test negative 03/2025. Pulmonary Hx: None Prior Surgical Complications: None Prior Anesthesia Complications: None Coag issues: None Functional [place]: Walks 1 mile each day. 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) Left inguinal hernia (08/24/22) Insomnia Snoring Concern about skin disease without diagnosis Chronic GERD Deviated nasal septum Elbow fracture Hiatal hernia Inguinal hernia Surgical History (Updated 03/11/24 @ 13:25 by Ru Lynn MD) History of hernia repair H/O inguinal hernia repair Family History Mother High cholesterol Father Esophageal cancer Maternal Grandmother Breast cancer Paternal Grandfather Thyroid disorder Maternal Grandfather Alcoholism Social History (Updated 01/30/25 @ 13:13 by Regina William CMA) Housing: House Alcohol intake: never Patient Tobacco Use Status: Never used Tobacco e-Cigarette/Vaping Use: Former Use Second Hand Smoke Exposure: No Use of substances other than those prescribed or required for medical reasons: Yes Substance Use Type: Marijuana service: Yes ([employer]) Current occupational status: employed 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 Current occupational exposures/hazards: No Cognitive needs: No Hearing needs: No Vision needs: No Questionnaire Thrive Questionnaire Date Thrive assessed: 04/11/24 I am a: Patient What is your living situation today?: I have a steady place to live Within the past 12 months, did the food you bought not last and you didn't have the money to get more?: Never true Within the past 12 months, did you worry whether your food would run out before you got money to buy more?: Never true Do you have trouble paying for medicines?: No Do you have trouble getting transportation to medical appointments?: No Do you have trouble paying your heating and electricity bill?: No Do you have trouble taking care of your child, family member or friend?: No Do you have trouble with day-to-day activities such as bathing, preparing meals, shopping, managing finances, etc.?: No Are you currently unemployed and looking for a job?: No Are you interested in more education?: No Please select the resources that you would like help with: None Currently or been in a relationship where the following occur: No concerns reported THRIVE Score: 0 KEYANA-7 AMB Questionnaire KEYANA-7 Date KEYANA - 7 assessed: 02/27/24 Source: Developed by Drs. Shailesh Krishna, Diana Boogie, Levi Dobson and colleagues, with an educational matthieu from [employer]. Review of Systems Const Denies chills, Denies fatigue, Denies fever(s), Denies headache(s) and Denies weakness ENT Denies dizziness and Denies headache(s) Card Denies chest pain, Denies lightheadedness, Denies dyspnea and Denies other (Palpitations) Resp Denies cough, Denies dyspnea, Denies wheezing and Denies other ( shortness of breath) Musc Denies numbness and Denies tingling Neuro Denies dizziness, Denies headache(s), Denies numbness, Denies tingling, Denies paresthesias and Denies weakness Psych Denies anxiety and Denies depression Endo Denies fatigue Aller/Immun Denies wheezing Physical exam (Primary Care) Vital Signs: Last Vital Signs Temp 97.6 F 01/30/25 13:14 Pulse 59 01/30/25 13:14 Resp 14 01/30/25 13:14 BP 108/68 01/30/25 13:14 Pulse Ox 96 01/30/25 13:14 Oxygen Delivery Method Room Air 01/30/25 13:14 BMI result Body Mass Index 27.0 Tobacco/Smoking Status: Tobacco use Status Tobacco use date assessed 01/30/25 01/30/25 13:18 Patient Tobacco Use Status Never used Tobacco 01/30/25 13:13 e-Cigarette/Vaping Use Former Use 01/30/25 13:13 Thrive Assessment: Date of Thrive Assessment Date Thrive assessed 04/11/24 01/30/25 13:11 Currently or been in a relationship where the following occur: No concerns reported Const General: no acute distress and well developed Nutritional Appearance: well nourished Orientation/consciousness: patient oriented x3 HENMT Head: Yes normocephalic and Yes atraumatic Eyes General: appearance normal, both eyes and all related structures Pupils: Equal, round and reactive pupils present EOM: EOMs intact bilaterally Resp Effort & Inspection: normal respiratory effort Auscultation: clear to auscultation bilaterally Cardio Rate: regular rate Rhythm: regular rhythm Heart sounds: S1 normal heart sound present, S2 normal heart sound present, no gallops, Murmur heart sound present and no rubs Neuro General: patient oriented x3 and gait normal Cranial nerves: Yes Equal, round and reactive pupils present Psych Affect: normal affect Coding Level of Care Code Est Pt Level 3 (66531) Diagnoses Pre-operative clearance Z01.818 Assessment & Plan Assessment & Plan (1) Pre-operative clearance: Code(s): Z01.818 - Encounter for other preprocedural examination Category: Medical Plan: 69-year-old male presents for preoperative clearance prior to cataract surgeries No history of cardiac disease and echocardiogram negative. Patient had episode of atypical chest discomfort February 2024 and stress test March 2024 was negative. EKG today shows sinus bradycardia with normal axis, no hypertrophy and no ST-T-wave changes. Cardiac exam is normal today. No history of pulmonary disease and pulmonary exam is normal. No complications with prior surgeries or anesthesia No clotting or bleeding disorders Patient walks 1 mi daily without shortness of breath or chest pain. Good functional reserve Low risk patient for low risk procedure. * no contraindications to proceeding with the proposed procedure
[2025-01-30 13:14] VITALS: BP 108/68; PULSE 59; RESP 14; TEMP 36.4; O2SAT 96; BMI 27.0
== END 2025-01-30 13:51 | disposition home or self-care (01) ==
LOC: HO.HMCFM 12:52
PROVIDERS: PCP Family Medicine; Visit Provider Family Medicine
DX: Z01.818 Encounter for other preprocedural examination (principal)

== ENCOUNTER → 2025-01-30 12:51 | Outpatient (BNVA) | payer MEDICARE, SELFPAY | PROVIDERS: PCP Family Medicine; Visit Provider Family Medicine | DX: Z01.818 Encounter for other preprocedural examination (principal); K21.9 Gastro-esophageal reflux disease without esophagitis | CPT/HCPCS: 99212 ==

== ENCOUNTER 2025-02-17 13:56 | Outpatient (AMB) | payer MEDICARE, SELFPAY ==
[2025-02-17 14:03] VITALS: BP 118/70; PULSE 57; O2SAT 96; BMI 27.1
--- NOTE | 2025-02-17 14:03 | MHC.OFFVIS ---
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 Patient notes some daytime sleepiness and fatigue. He also has some insomnia and has difficulty with waking up at night and not being able to fall back asleep. Snores no witnessed apnea/gasping. Goes to bed at not set time. Wakes up at 8am. Wakes once at night. Naps 10-15min. No headaches. No history of sleep studies Allergies No Known Allergies Allergy (Verified 02/17/25 14:06) HPI Comments Details: 69 year male is referred to us for an evaluation of sleep apnea by his PCP Dr. Richmond. He plays [employer] in a [employer] group and he goes to bed around midnight after his shows, he feels overstimulated and falls asleep at 1am. 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 He denies snoring, but partner says he snores, gasps for air but sleeps is fragmented. He has morning headaches which resolve once he has coffee and water. He wakes up at 7am daily with zero bathroom breaks at night. Memory is good. Mood is stable. Diet, is erratic, h/o inguinal hernia May 2022, and hiatal hernia repair in Nov 2020, he still has irregular bowels, with constipation and diarrhea. He must manage his diet and eat small portions due to dysphagia with bloating. Denies acid reflux, n/v, parasomnias and RLS symptoms of paresthesias. He walks daily, is socially active plays with his grandkids, but needs a 30min nap at 3pm daily due to chronic fatigue. 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) Left inguinal hernia (08/24/22) Insomnia Snoring Concern about skin disease without diagnosis Chronic GERD Deviated nasal septum Elbow fracture Hiatal hernia Inguinal hernia Surgical History History of hernia repair H/O inguinal hernia repair Family History Mother High cholesterol Father Esophageal cancer Maternal Grandmother Breast cancer Paternal Grandfather Thyroid disorder Maternal Grandfather Alcoholism Social History Housing: House Alcohol intake: never Patient Tobacco Use Status: Never used Tobacco e-Cigarette/Vaping Use: Former Use Second Hand Smoke Exposure: No Substance Use Type: Marijuana service: Yes ([employer]) Current occupational status: employed 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 Current occupational exposures/hazards: No Cognitive needs: No Hearing needs: No Vision needs: No Physical Exam Vital Signs: Last Vital Signs Pulse 57 02/17/25 14:03 BP 118/70 02/17/25 14:03 Pulse Ox 96 02/17/25 14:03 Oxygen Delivery Method Room Air 02/17/25 14:03 BMI result Body Mass Index 27.1 Const General: cooperative, comfortable and tired appearing Nutritional Appearance: average body habitus Orientation/consciousness: patient oriented x3 HEENT Face and sinus: Yes face symmetric Teeth and gingiva: other (mallampti score is 3) Eyes Pupils: Equal, round and reactive pupils present Neck Neck: Yes full ROM Resp Effort & Inspection: normal respiratory effort and able to speak in complete sentences Neuro Other: gait is unbalanced no tremors noted stooped posture General: patient oriented x3 and moves all extremities Cranial nerves: Yes Equal, round and reactive pupils present, Yes Normal accommodation reflex present, Yes Normal facial strength present, Yes Midline tongue present, Yes Ability to bilaterally rotate head present and Yes Ability to bilaterally elevate shoulders present Cognition (Neuro): normal cognition Gait exam (Neuro): Other gait observations present Motor exam (neuro): 5/5 motor strength present throughout and Normal motor muscle tone present throughout Psych Appearance: well kempt Attitude: cooperative Thought process: Normal thought process present Thought content: Normal thought content present Assessment & Plan Assessment & Plan (1) Excessive daytime sleepiness: Code(s): G47.19 - Other hypersomnia Category: Medical (2) Hypersomnia: Code(s): G47.10 - Hypersomnia, unspecified Category: Medical (3) Snoring: Code(s): R06.83 - Snoring Category: Medical (4) Insomnia: Comment: poor sleep hygiene Code(s): G47.00 - Insomnia, unspecified Category: Medical Qualifiers: Insomnia type: primary Qualified Code(s): F51.01 - Primary insomnia (5) Chronic fatigue: Code(s): R53.82 - Chronic fatigue, unspecified Category: Medical Plan HST r/o yolanda Melatonin 5mg po daily Discussed in detail about sleep hygiene which is contributing to insomnia A handout on sleep hygiene was given to the patient. In lab sleep study to evaluate for sleep apnea, excessive daytime sleepiness, if HST is inconclusive. Excessve daytime sleepiness with chronic fatigue Check Vit D, B12/homo cysteine and MMA, TSH Ferritin for anemia, CBC, CMP, Orders: Orders Vitamin D 25-OH Total Today R53.82 - Chronic fatigue, unspecified Vitamin B12 and Folate Today R53.82 - Chronic fatigue, unspecified TSH reflex Free T4 Today R53.82 - Chronic fatigue, unspecified RT home sleep study 02/17/25 G47.19 - Other hypersomnia Ferritin Today R53.82 - Chronic fatigue, unspecified Methylmalonic Acid Today G47.9 - Sleep disorder, unspecified, R53.82 - Chronic fatigue, unspecified, R53.83 - Other fatigue Homocysteine Today G47.9 - Sleep disorder, unspecified, R53.82 - Chronic fatigue, unspecified, R53.83 - Other fatigue Patient Instructions: Please complete the following fasting labs to rule out deficiencies. CBC/CMP/ B12/ Vit D/ TSH/ Homocysteine and MMA/ Ferritin. Sleep Hygiene provided: set a scheduled bedtime and wake time to help regulate the circadian rhythm and balance the release of pituitary hormones. Sleep in a dark room, temperatures below 68 degrees, and no devices n bed. Limit caffeinated products 6 hours prior to bed, and limit fluids 2-4 hours prior to bed. Gentle night yoga, diffusing essential oils, and playing soft music can be relaxing. Coding Level of Care Code New Pt Level 4 (76311) Diagnoses Excessive daytime sleepiness G47.19 Hypersomnia G47.10 Snoring R06.83 Primary insomnia F51.01 Insomnia type: primary Chronic fatigue R53.82 Sleep Questionnaire Difficulty falling asleep: Yes (lays for hours) Difficulty staying asleep?: Yes Number of arousals: 0 Snoring: No Witnessed apneas: No Gasping arousals: Yes Nocturia: No GERD: Yes Vivid dreams: No Acting out dreams: No Abnormal behavior in sleep: No Abnormal movements in sleep: No Morning headaches: Yes Excessive daytime sleepiness: Yes Daytime naps: Yes (3-5 min naps at 3pm) Restless legs: No Hallucinations: No Sleep paralysis: No Drop attacks: No Sleep Study: No CPAP: No
== END 2025-02-17 15:13 | disposition home or self-care (01) ==
LOC: HO.HSMS 13:57
PROVIDERS: PCP Family Medicine; Visit Provider Physician Assistant Medical
DX: G47.19 Other hypersomnia (principal); G47.10 Hypersomnia, unspecified; R06.83 Snoring; F51.01 Primary insomnia; R53.82 Chronic fatigue, unspecified
CPT/HCPCS: 99204

== ENCOUNTER → 2025-02-17 13:56 | Outpatient (BNVA) | payer MEDICARE, SELFPAY | PROVIDERS: PCP Family Medicine; Visit Provider Physician Assistant Medical | DX: G47.19 Other hypersomnia (principal); G47.10 Hypersomnia, unspecified; R06.83 Snoring; F51.01 Primary insomnia; R53.82 Chronic fatigue, unspecified | CPT/HCPCS: 99202 ==

== ENCOUNTER 2025-02-24 13:28 | Outpatient (AMB) | payer MEDICARE, SELFPAY ==
--- NOTE | 2025-02-24 13:31 | MHC.OFFVIS ---
Intake Visit Reasons: bilateral hydroceles Intake Note: New Patient is present for Billateral Hydrocele Urology Rx:none Blood Thinners:none Imaging completed: none Patient Forms : AUA Questionnaire Accompanied by: Self / Same As Patient Allergies No Known Allergies Allergy (Verified 02/24/25 13:33) HPI Comments Details: Tee is a pleasant male. He is a patient of Dr. 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) Left inguinal hernia (08/24/22) Insomnia Snoring Concern about skin disease without diagnosis Chronic GERD Deviated nasal septum Elbow fracture Hiatal hernia Inguinal hernia Surgical History History of hernia repair H/O inguinal hernia repair Family History Mother High cholesterol Father Esophageal cancer Maternal Grandmother Breast cancer Paternal Grandfather Thyroid disorder Maternal Grandfather Alcoholism Social History Housing: House Alcohol intake: never Patient Tobacco Use Status: Never used Tobacco e-Cigarette/Vaping Use: Former Use Second Hand Smoke Exposure: No Substance Use Type: Marijuana service: Yes ([employer]) Current occupational status: employed 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 Current occupational exposures/hazards: No Cognitive needs: No Hearing needs: No Vision needs: No Review of Systems Const Denies chills and Denies fever(s) Card Reports no additional complaints and Denies syncope Resp Denies cough GI Denies abdominal pain and Denies heartburn Reports as per HPI and Denies change in libido Neuro Denies syncope Psych Denies change in libido Endo Denies change in libido Physical Exam Const General: cooperative, healthy appearing, comfortable and no acute distress Orientation/consciousness: patient oriented x3 HEENT Face and sinus: Yes normal facial exam Mouth: moist mucous membranes Neck Neck: Yes normal visual inspection, Yes full ROM and Yes trachea midline Chest Chest palpation & inspection: normal inspection of the chest Resp Effort & Inspection: normal respiratory effort, able to speak in complete sentences and no respiratory distress GI Inspection: Yes normal to inspection Back/Spine/Pelvis Cervical Spine: normal cervical lordosis Thoracic/Lumbar Spine: thoracic and lumbar spine normal to inspection Skin General skin exam: no rashes or lesions noted Neuro General: patient oriented x3, gait normal, tone normal and moves all extremities Extrem General: Yes normal to inspection and Yes capillary refill normal Results AMB Urinalysis, Automated UA Leukoctes 0 Regine/uL Last Edit by Lorena Bradley [facility] on 02/24/25 13:42 UA Nitrite Negative Last Edit by Lorena Bradley [facility] on 02/24/25 13:42 UA Urobilinogen 0.2 mg/dL Last Edit by Lorena Bradley [facility] on 02/24/25 13:42 UA Protein 0 mg/dL Last Edit by Lorena Bradley [facility] on 02/24/25 13:42 UA pH 7.5 Last Edit by Lorena Bradley [facility] on 02/24/25 13:42 UA Blood 0 Booker/uL Last Edit by Lorena Bradley [facility] on 02/24/25 13:42 UA Specific [place] 1.015 Last Edit by Lorena Bradley [facility] on 02/24/25 13:42 UA Ketone Negative Last Edit by Lorena Bradley [facility] on 02/24/25 13:42 UA Bilirubin 0 mg/dL Last Edit by Lorena Bradley [facility] on 02/24/25 13:42 UA Glucose 0 mg/dL Last Edit by Lorena Bradley [facility] on 02/24/25 13:42 Results Reviewed Results Reviewed: Laboratory Last Values Urine pH (Auto) 7.5 02/24/25 13:41 Specific [place] (Auto) 1.015 02/24/25 13:41 Urine Protein (Auto) 0 mg/dL 02/24/25 13:41 Glucose (UA)(Auto) 0 mg/dL 02/24/25 13:41 Urine Ketones (Auto) Negative 02/24/25 13:41 Urine Blood (Auto) 0 Booker/uL 02/24/25 13:41 Urine Nitrite (Auto) Negative 02/24/25 13:41 Urine Bilirubin (Auto) 0 mg/dL 02/24/25 13:41 Urine Urobilinogen (Auto) 0.2 mg/dL 02/24/25 13:41 Leukocyte Esterase (Auto) 0 Regine/uL 02/24/25 13:41 Assessment & Plan Assessment & Plan (1) Hydrocele: Code(s): N43.3 - Hydrocele, unspecified Category: Medical (2) Deep inguinal pain, left: Code(s): R10.32 - Left lower quadrant pain Category: Medical Plan Six-month follow-up Patient Instructions: This note is constructed using voice recognition software. While every effort has been made to ensure accuracy rn clinical review errors may have been included. Imaging studies, laboratory and physical exam results were discussed and reviewed in detail. No major barriers to patient understanding were identified. An opportunity to ask questions regarding the treatment plan was provided. All questions were answered. The patient expressed understanding and agreement with the above treatment plan. The patient is aware they should contact our office by phone for worsening of their current condition or the appearance of new urologic symptoms. Compliance is encouraged with any medications and followup testing that is ordered. It is a privilege to participate in the urologic care of your patient. If you have any questions or concerns regarding treatment for the above conditions, or other urologic issues, please do not hesitate to contact me. The office telephone contact is [phone]. Sincerely, Dr Jax Munson MD, [facility] - Urology Compassionate Specialist Care for the Genitourinary System Coding Level of Care Code New Pt Level 3 (25771) Diagnoses Hydrocele N43.3 Deep inguinal pain, left R10.32
== END 2025-02-24 14:13 | disposition home or self-care (01) ==
LOC: HO.HUSH 13:29
PROVIDERS: PCP Family Medicine; Visit Provider Urology
DX: N43.3 Hydrocele, unspecified (principal); R10.32 Left lower quadrant pain
CPT/HCPCS: 99203

== ENCOUNTER → 2025-02-24 13:28 | Outpatient (BNVA) | payer MEDICARE, SELFPAY | PROVIDERS: PCP Family Medicine; Visit Provider Urology | DX: N43.3 Hydrocele, unspecified (principal); R10.32 Left lower quadrant pain | CPT/HCPCS: 99202 ==

== ENCOUNTER 2025-03-20 10:59 | Outpatient (AMB) | payer MEDICARE, SELFPAY ==
--- NOTE | 2025-03-20 11:01 | MHC.OFFVIS ---
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 His left lower quadrant pain began after an inguinal hernia repair with mesh in August 2022 and has been constant since. He describes the pain as a deep, heavy sensation in the groin, which is associated with bowel movements. The pain intensity fluctuates from a 2/10 to as high as 12/10, at times being excruciating and causing him to double over. Initially, he also experienced pulling, tightness, and sharpness with walking, but this has subsided. He has been evaluated by general surgery and urology, with suspicion of post-surgical scarring being the cause; a recurrent hernia was ruled out. Concurrent with the onset of pain, he developed bowel and digestive problems. His daily routine involves having three to four bowel movements every morning, starting with painful, hard, pebble-like stool, followed by more substantial stool, and ending with loose stool. He takes Miralax nightly to manage this. He has seen a Facility Engineer in the past and has a colorectal exam scheduled for next week. The patient also reports chronic right elbow pain, present for years, which he initially believed was the reason for this visit. The pain is located at the back of the elbow, with numbness radiating to 4th and 5th of his fingers. It is exacerbated by bending the elbow, such as when using a computer or playing the guitar, and is relieved by straightening the arm. He has a history of a chipped right elbow in the mid-, at which time he was told a nerve was being irritated. His past medical history is significant for a hiatal hernia repaired in 2020 and disc problems dating back 20 years. He recently underwent cataract surgery and is currently using ketorolac eye drops. He denies any history of diabetes or kidney problems. 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 He reports minimal alcohol use. Pain Description - Left Lower Quadrant Pain: The patient describes a constant, deep, heavy pain in the left groin that started after his inguinal hernia repair in August 2022. - Severity: The pain ranges from 2/10 to 12/10 and can be excruciating. - Triggers: Pain is associated with bowel movements, particularly in the morning, and is worsened by activities like heavy lifting. - Associated Symptoms: The pain is accompanied by soreness but no tingling. - Right Elbow Pain: The patient has had pain in the back of his right elbow for years, which he rates as a 7/10 when it flares up. - Radiation: The elbow pain radiates as numbness down to two of his fingers. - Triggers and Relieving Factors: The pain is worse with bending the elbow (e.g., using a computer, playing guitar) and is relieved by straightening or shaking out the arm. Pain Management - Analgesia: The patient reports his left groin pain ranges from 2/10 to 12/10, while his right elbow pain is around a 7/10 when active. - He is not currently taking any prescribed pain medications but reports using marijuana to help manage his pain. - Activities of Daily Living: The pain can interfere with his sleep. 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 - His elbow pain is exacerbated by playing the guitar and using a computer. - Affect: The patient reports his pain can be excruciating and cause significant discomfort. - Aberrant Drug-Related Behaviors: He uses marijuana via inhalation three to four times a week at night to help with pain and sleep. - He denies significant alcohol use. 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) Left inguinal hernia (08/24/22) Insomnia Snoring Concern about skin disease without diagnosis Chronic GERD Deviated nasal septum Elbow fracture Hiatal hernia Inguinal hernia Surgical History History of hernia repair H/O inguinal hernia repair Family History Mother High cholesterol Father Esophageal cancer Maternal Grandmother Breast cancer Paternal Grandfather Thyroid disorder Maternal Grandfather Alcoholism Social History Housing: House Alcohol intake: never Patient Tobacco Use Status: Never used Tobacco e-Cigarette/Vaping Use: Former Use Second Hand Smoke Exposure: No Substance Use Type: Marijuana service: Yes ([employer]) Current occupational status: employed 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 - Denies pain in other abdominal quadrants. - Musculoskeletal: Reports chronic right elbow pain and intermittent lower back pain. - Neurological: Reports numbness in two fingers of the right hand radiating from the elbow. - Reports soreness without tingling in the left groin. - Constitutional: Reports pain interfering with sleep. Const All systems reviewed & are unremarkable except as noted in HPI and below Physical Exam Vital Signs: Last Vital Signs Pulse 52 03/20/25 11:04 BP 111/63 03/20/25 11:04 Pulse Ox 99 03/20/25 11:04 Oxygen Delivery Method Room Air 03/20/25 11:04 BMI result Body Mass Index 26.7 General: Appears afebrile. Alert and oriented. Mood and affect appropriate. Follows and participates in conversation appropriately. Respiratory effort is unlabored. No cough. Able to transition from sit to stand unassisted. Ambulates with bilaterally normal heel strike and toe off. GI Other: - Inspection reveals a healed incision in the left lower quadrant. - On palpation, there is tenderness over the left lower quadrant with deep pressure. - There is no tenderness in the other abdominal quadrants. Inspection: Yes normal to inspection, No abdominal wall ecchymosis, No visible herniation and No visible pulsation Palpation (GI): Soft to palpation, no guarding and No Carnett's sign positive Male General Exam: No inguinal lymphadenopathy and Yes tenderness (left inguinal area, well healed incision) Back/Spine/Pelvis Cervical Spine: cervical ROM normal and No Cervical spine tenderness Thoracic/Lumbar Spine: thoracic and lumbar spine normal to inspection, No Thoracic/lumbar spine scar(s), Lasegue's sign negative, straight leg raise negative bilaterally, pain with thoraco-lumbar ROM, thoraco-lumbar ROM limited, No thoracic spinal tenderness and No lumbar spinal tenderness Extrem General: Yes capillary refill normal, Yes no clubbing, cyanosis or edema and Yes no calf tenderness Right upper extremity: elbow/forearm Details: normal to inspection, tenderness Location: of the lateral epicondyle, normal ROM and distal pulses intact; no swelling, no unusual warmth, no abrasions, no ecchymosis and no crepitus Results Reviewed Results Reviewed: US PELVIS, LIMITED/FOLLOW UP 12/29/22 CLINICAL INFORMATION: Left lower quadrant and left inguinal pain with history of inguinal hernia repair 4 months ago. COMPARISON: None available. TECHNIQUE: The patient directed the principal systems architect to the area of clinical concern. Targeted ultrasound was performed. FINDINGS: Hernia mesh is seen. No discrete recurrent hernia is seen. No fluid collection. Incidental note is made of cysts versus spermatocele in the left epididymis. Small left hydrocele. IMPRESSION: Left inguinal hernia repair with mesh. No visible recurrent hernia. Incidental note made of cysts versus spermatocele in the left epididymis and small left hydrocele. Assessment & Plan Assessment & Plan (1) Right elbow pain: Code(s): M25.521 - Pain in right elbow Category: Medical (2) Paresthesia of right arm: Code(s): R20.2 - Paresthesia of skin Category: Medical (3) Inguinodynia, left: Code(s): R10.32 - Left lower quadrant pain Category: Surgical (4) Deep inguinal pain, left: Code(s): R10.32 - Left lower quadrant pain Category: Medical Plan The patient's chronic left lower quadrant pain is likely multifactorial, stemming from post-surgical changes such as scarring or adhesions from his 2022 inguinal hernia repair, and is exacerbated by his chronic abnormal bowel pattern. To manage the neuropathic component, a trial of low-dose gabapentin will be initiated, prescribed as either 100 mg three times daily or 300 mg at bedtime. We will await the completion of his upcoming colorectal study to better understand the etiology of his bowel issues. If the pain persists after his GI evaluation, we will consider ultrasound-guided nerve blocks. 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 A referral will be placed with a Hand specialist for further evaluation and management. The prescribed gabapentin may also provide ancillary benefit for this neuropathic arm pain. We will request prior imaging studies from [facility] for review. A follow-up appointment is scheduled for mid-April to review the response to gabapentin, the results of his colorectal study and EMG, and to determine further treatment steps. All questions and concerns have been answered and patient agreed with the treatment plan. Follow up for medication review and sooner as needed. Patient was informed and verbally consented to the use of an ambient scribe for clinic note documentation during this visit. Orders: Orders NE nerve conduction velocity 03/20/25 M25.521 - Pain in right elbow, R20.2 - Paresthesia of skin NE electromyogram (EMG) 03/20/25 M25.521 - Pain in right elbow, R20.2 - Paresthesia of skin Referrals Hand Surgery Referral M25.521 - Pain in right elbow Medications: New gabapentin 100 mg PO TID 90 caps 0RF pain 30 days R10.32 - Left lower quadrant pain, R20.2 - Paresthesia of skin Coding Level of Care Code New Pt Level 4 (61930) Diagnoses Right elbow pain M25.521 Paresthesia of right arm R20.2 Inguinodynia, left R10.32 Deep inguinal pain, left R10.32
[2025-03-20 11:04] VITALS: BP 111/63; PULSE 52; O2SAT 99; BMI 26.7
== END 2025-03-20 11:35 | disposition home or self-care (01) ==
LOC: HO.PMC 11:01
PROVIDERS: PCP Family Medicine; Visit Provider Nurse Practitioner Family
DX: M25.521 Pain in right elbow (principal); R20.2 Paresthesia of skin; R10.32 Left lower quadrant pain
CPT/HCPCS: 99204

== ENCOUNTER → 2025-03-20 10:59 | Outpatient (BNVA) | payer MEDICARE, SELFPAY | PROVIDERS: PCP Family Medicine; Visit Provider Nurse Practitioner Family | DX: R10.32 Left lower quadrant pain (principal); M25.521 Pain in right elbow; R20.2 Paresthesia of skin | CPT/HCPCS: 99202 ==

== ENCOUNTER → 2025-03-27 12:48 | Outpatient (REF) | payer MEDICARE, SELFPAY ==
[2025-03-27 15:01] LABS: Folate 5.0 ng/mL (> or = 4.0); Vitamin B12 267 pg/mL (200-900)
[2025-03-27 15:03] LABS: Ferritin 130 ng/mL (20-250)
== END ==
LOC: HO.CARD 12:48
PROVIDERS: Physician Assistant Medical; PCP Family Medicine; Visit Provider Family Medicine
DX: R53.83 Other fatigue (principal); R01.1 Cardiac murmur, unspecified; R53.82 Chronic fatigue, unspecified; G47.9 Sleep disorder, unspecified; Z13.21 Encounter for screening for nutritional disorder
CPT/HCPCS: 36415; 82306; 82607; 82728; 82746; 83090; 83921; 84443; 93306

== ENCOUNTER → 2025-03-27 12:51 | Outpatient (BNV) | payer MEDICARE, SELFPAY | PROVIDERS: PCP Family Medicine; Visit Provider Internal Medicine | DX: R01.1 Cardiac murmur, unspecified (principal) | CPT/HCPCS: 93306 ==